=== PATIENT | male | born 1960 | race Caucasian/White ===

== ENCOUNTER 2016-10-09 23:30 | Inpatient (IN) | payer OTHER ==
[~2016-10-09] VITALS: Ht 195.6 cm; Wt 90.9 kg
[2016-10-10 01:40] VITALS: BP 100/69; PULSE 81; RESP 18; Ht 195.6 cm; Wt 90.9 kg
[2016-10-10] MEDS ORDERED: ONDANSETRON 4 MG TAB PO PRN (03:00)
[2016-10-10] MEDS ORDERED: NACL 0.9% 3 ML SYG IV SCH (03:00)
[2016-10-10] MEDS ORDERED: ACETAMINOPHEN 325 MG TAB PO PRN (03:00)
[2016-10-10] MEDS ORDERED: NA PHOSPHATE/BIPHOS 133 ML ENEMA PR PRN (04:00)
[2016-10-10] MEDS ORDERED: BISACODYL 10 MG SUPP PR PRN (04:00)
[2016-10-10] MEDS ORDERED: ALBUTEROL 0.083% (NEB) 2.5 MG/3 ML AMP HHN PRN (04:00)
[2016-10-10] MEDS ORDERED: MAGNESIUM HYDROXIDE 30ML CUP PO PRN (04:00)
[2016-10-10] MEDS ORDERED: ALBUTEROL/IPRATROPIUM (NEB) 3 ML AMP HHN PRN (04:00)
[2016-10-10 05:05] LABS: ADD SCAN DIFF NO
[2016-10-10 05:24] LABS: BASOPHIL # 0.1 10^3/ul (0.0-0.1); BASOPHILS % 1.1 % (0.0-2.0); EOSINOPHILS # 0.2 10^3/ul (0.0-0.5); EOSINOPHILS % 1.7 % (0.0-7.0); HEMATOCRIT 42.6 % (42.0-52.0); HEMOGLOBIN 13.6 g/dl (14.0-18.0); INR 1.02; LYMPHOCYTES # 2.8 10^3/ul (0.8-2.9); LYMPHOCYTES % 29.7 % (15.0-51.0); MEAN CORPUSCULAR HEMOGLOBIN 30.8 pg (29.0-33.0); MEAN CORPUSCULAR HGB CONC 31.9 g/dl (32.0-37.0); MEAN CORPUSCULAR VOLUME 96.4 fl (82.0-101.0); MEAN PLATELET VOLUME 11.4 fl (7.4-10.4); MONOCYTES % 10.4 % (0.0-11.0); NEUTROPHIL # 5.2 10^3/ul (1.6-7.5); NEUTROPHILS % 56.6 % (39.0-77.0); PARTIAL THROMBOPLASTIN TIME 29.4 Sec (25.0-35.0); PLATELET COUNT 173 10^3/UL (140-415); PROTIME 13.4 Sec (12.2-14.2); RED BLOOD COUNT 4.42 10^6/ul (4.70-6.10); RED CELL DISTRIBUTION WIDTH 13.1 % (11.5-14.5); WHITE BLOOD COUNT 9.3 10^3/ul (4.8-10.8)
[2016-10-10 05:26] LABS: ALBUMIN 4.1 g/dl (3.3-4.9)
[2016-10-10 05:27] LABS: POTASSIUM 5.1 mmol/L (3.5-5.1)
[2016-10-10 05:29] LABS: CREATININE 4.66 mg/dl (0.61-1.24)
[2016-10-10 05:30] LABS: ALBUMIN/GLOBULIN RATIO 0.97; CALCIUM 10.5 mg/dl (8.4-10.2); MAGNESIUM 2.1 mg/dl (1.7-2.5); PHOSPHORUS 4.3 mg/dl (2.5-4.9); TOTAL PROTEIN 8.3 g/dl (6.1-8.1)
--- NOTE | 2016-10-10 05:53 | HP ---
Date/Time of Note Date/Time of Note DATE: 10/10/16 TIME: 05:24 Assessment/Plan VTE Prophylaxis VTE Prophylaxis Intervention: anti-embolic stocking Lines/Catheters Urinary Cath still in place: No Assessment/Plan Assessment/Plan 1) Hydronephrosis by report from ER Physician at [facility], but no specific documentation available, so I do not know how much, which side or if it is both sides. - Faxed records from [facility] earlier today were reviewed. I found nothing useful in them like a narrative, labs, rads or a medication list - Send patient's CD to Radiology where the films can be read again so we won't have to repeat the study. - New labs are drawn today to help get to the cause of his worsening kidney function tests. - Above was explained to patient and this helped him to decide to let the inside sales account manager draw his blood. - All home medications are resumed, except for the prn Hydrocodone 10/325, 1 pill at 1700, for breakthrough pain as he is already on Oxycodone 10 mg Q 8 hours. HPI/ROS Admit Date/Time Admit Date/Time Oct 10, 2016 at 01:18 Hx of Present Illness Patient presents as a transfer from [facility] due to the fact he is stable and he is capitated with us through [employer]. I received doctor to doctor communication with Dr. Carrizales, but she took over for the original doctor on the case AND their computer system is down so she has no acces to lab or x- ray results and is relying on her memory on what the first doctor told her. She states this patient was found to have Hydronephrosis which she assumes is obstructive as there were stones found bilaterally.She also mentions an Acute Kidney Injury, remembering that his BUN/Creatinine were 83/4.6 on 10/03 and " worse today". She does tell me that this patient is very frustrated because the entire transfer process has taken too long. She also mentions that he has CIrrhosis, COPD, HTN, Hepatitis C, Anemia and Chronic Respiratory Failure requiring a Trache but not a ventilator. When I get a chance to see patient, he is sleeping soundly. I did wake him. He was a bit grumpy but went back to sleep. Then, the inside sales account manager arrived, and patient originally refused the draw stating he already had blood tests done. I explained to him that we have no specific information on his case because the computers went down at [facility]. He got up and sat at the side of the bed and complained about the long day he has already had and that he is tired "but go ahead and do what you have to do". He explained to the inside sales account manager that he is a "hard stick". Patient was so irritated and impatient that I did not stay any longer so that he could get his blood drawn Prior to me going into the room, I spoke with his nurse and they did receive some faxed notes on this patient. I looked through them, but I coul not identify any narritve, lab or radiologic reports. A CD was included in his transfer packet, and it can be submitted to Radiology to be read, but that has to be done in the AM. I notified patients RN. ROS No specific ROS obtained as patient was short with me and the inside sales account manager, and I felt it was more important to get some lab results this morning, rather koehler going through an entire ROS which would likely make the patient more frustrated. NOTE: Prior to my arrival on the floor, but after I put basic orders in the EHR , the RN called me with his medications. I continued all of them except for the Hydrocodone for breakthrough pain at 1700. See list below. PMH/Family/Social Past Medical History Medical History: diverticulitis, hypertension, other (COPD, Drug Abuse, Chronic Respiratory Failure) Past Surgical History Past Surgical Hx: other (Tracheostomy) Social History Smoking Status: Current some day smoker Exam/Review of Systems Medications Medications Current Medications Ondansetron HCl (Zofran Tab) 4 mg Q6H PRN PO NAUSEA AND/OR VOMITING; Start 10/10 at 03:00 Acetaminophen (Tylenol Tab) 650 mg Q6H PRN PO PAIN LEVEL 1-3 OR FEVER; Start at 03:00 Famotidine (Pepcid) 20 mg Q12 PO ; Start 10/10/16 at 09:00 Ferrous Sulfate (Ferrous Sulfate (Ec)) 325 mg DAILY PO ; Start 10/10/16 at 09:00 Ascorbic Acid (Vitamin C) 500 mg DAILY PO ; Start 10/10/16 at 09:00 Loratadine (Claritin) 10 mg DAILY PO ; Start 10/10/16 at 09:00 Oxycodone HCl (Oxycontin) 10 mg Q8 PO ; Start 10/10/16 at 06:00 Glycopyrrolate (Robinul) 1 mg TID PO ; Start 10/10/16 at 09:00 Atenolol (Tenormin) 25 mg HS PO ; Start 10/10/16 at 21:00 Magnesium Hydroxide (Milk Of Mag) 30 ml HS PRN PO CONSTIPATION; Start 10/10/16 at 04:00 Bisacodyl (Dulcolax Supp) 10 mg DAILY PRN [place] CONSTIPATION; Start 10/10/16 at 04: 00 Sodium Biphosphate/ Sodium Phosphate (Fleet Enema) 133 ml DAILY PRN [place] CONSTIPATION; Start 10/10/16 at 04:00 Zolpidem Tartrate (Ambien) 5 mg HS PO ; Start 10/10/16 at 21:00 Lisinopril (Zestril) 5 mg DAILY PO ; Start 10/10/16 at 09:00 JAZZ PAYNE DO Oct 10, 2016 05:36
[2016-10-10] MEDS: oxyCODONE (CR) 10 MG TAB [oxyCONTIN] PO SCH ×3 (06:24→21:37)
[2016-10-10 07:30] VITALS: BP 110/72; RESP 18
[2016-10-10] MEDS: ALBUTEROL/IPRATROPIUM (NEB) 3 ML AMP HHN SCH ×4 (08:15→20:07)
[2016-10-10] MEDS: CALCIUM ACETATE 667 MG CAP PO SCH ×2 (08:44→12:21)
[2016-10-10] MEDS: GLYCOPYRROLATE 1 MG TAB PO SCH ×3 (08:45→20:34)
[2016-10-10] MEDS: FAMOTIDINE 20 MG TAB PO SCH ×2 (08:45→20:34)
[2016-10-10] MEDS: FERROUS SULFATE (EC) 325 MG TAB PO SCH (08:45)
[2016-10-10] MEDS: LORATADINE 10 MG TAB PO SCH (08:45)
[2016-10-10] MEDS ORDERED: ASCORBIC ACID 500 MG TAB PO SCH (09:00)
[2016-10-10] MEDS ORDERED: LISINOPRIL 5 MG TAB PO SCH (09:00)
[2016-10-10 13:12] LABS: ADD UMIC YES; URINE BILIRUBIN (Dip) NEGATIVE (NEGATIVE); URINE BLOOD (Dip) 2+ (NEGATIVE); URINE COLOR YELLOW (YELLOW); URINE GLUCOSE (Dip) NEGATIVE (NEGATIVE); URINE KETONES (Dip) NEGATIVE (NEGATIVE); URINE LEUKOCYTE ESTERASE (Dip) 3+ (NEGATIVE); URINE NITRITE (Dip) NEGATIVE (NEGATIVE); URINE TOTAL PROTEIN (Dip) TRACE (NEGATIVE); URINE UROBILINOGEN (Dip) 0.2 E.U./dL (0.1-1.0)
[2016-10-10 13:35] LABS: BACTERIA,URINE MANY
--- NOTE | 2016-10-10 16:21 | RADRPT ---
PROCEDURE: XR Abdomen. CLINICAL INDICATION: History of bilateral ureteral calculi. TECHNIQUE: AP supine abdomen x-ray. COMPARISON: None. FINDINGS: The bowel gas pattern is normal. There is no evidence of obstruction. There is a 1.0 x 1.2 cm calcification overlying the lower right kidney, a 1.8 x 1.3 cm calcification overlying the right ureter at the upper L4 level, and a 1.4 x 1.0 cm calcification overlying the le ft ureter at the mid L3 level. There are degenerative changes of the spine. IMPRESSION: 1. Calcifications bilaterally which may be in the urinary tracts. 2. Degenerative changes of the spine. 3. Otherwise unremarkable study. RPTAT: QQ .Oli Ford MD, MD Date Time Electronically viewed and signed by .Oli Ford MD, on 10/10/2016 16:21 .R/
--- NOTE | 2016-10-10 17:52 | CONS ---
DATE OF ADMISSION: 10/10/2016 DATE OF CONSULTATION: 10/10/2016 TYPE OF CONSULTATION: Nephrology REFERRING PHYSICIAN: Luciana Barroso MD REASON FOR ADMISSION: Acute kidney injury with a BUN of 86, creatinine 4.6, glucose 107, calcium 10 .5. HISTORY OF PRESENT ILLNESS: This is a 56-year-old male with a past medical history of COPD, hyperte nsion, hepatitis C, anemia, chronic respiratory failure requiring a tracheostomy but not on ventilat or, history of liver cirrhosis. The patient got transferred to [facility] because o f having hydronephrosis. The patient's insurance was capitated to [facility]. He has a BUN of 83 and the creatinine was 4.6, which have been getting worse. The patient is admitted to [facility] for further urological evaluation and the further plan as per urolo gy. At the time of my evaluation, the patient was very frustrated about getting a transfer, and the luis ent was also complaining of back pain associated with some hematuria. Otherwise no fever, chills, h eadache, dizziness, blurry vision, constipation, diarrhea, dysuria, increased urinary frequency. PAST MEDICAL HISTORY: Diverticulitis, hypertension, COPD, chronic respiratory failure, status post tracheostomy but not on ventilator, anemia of chronic disease, hepatitis C, liver cirrhosis. PAST SURGICAL HISTORY: History of tracheostomy. SOCIAL HISTORY: The patient is a current smoker. No alcohol or recreational drug use as per the pa tient. FAMILY HISTORY: Not available. PHYSICAL EXAMINATION: VITAL SIGNS: Temperature 97.7, heart rate 80, respirations 20, blood pressure 110/72, saturation is 94% to 95% on room air. GENERAL: Awake, alert, in no distress. HEENT: Normal. Oropharynx clear. NECK: Supple, no JVD, no lymphadenopathy. Tracheostomy site is clear. No erythema, no discharge. LUNGS: Clear to auscultation. No crackles, no wheezes. HEART: S1, S2, with regular rhythm, no murmur. ABDOMEN: Soft, nontender, nondistended. Bowel sounds are present. EXTREMITIES: No clubbing, cyanosis, or edema. NEUROLOGICAL: Nonfocal, intact. LABORATORY DATA/DIAGNOSTIC IMAGIN. Sodium 142, potassium 5.1, chloride 104, bicarbonate 24, BUN 86, creatinine 4.6, glucose 107, ca lcium 10.5. LFTs are normal. Albumin 4.1. PT 13.4, PTT 29.4, INR 1.0. WBC 9.3, hemoglobin 13.6, platelet count 173. Urinalysis shows cloudy, 3+ leukocyte esterase, 2+ hemoglobin. 2. X-ray abdomen which shows calcifications bilaterally, which may be in the urinary tract, degener ative changes of the spine, otherwise unremarkable study. 3. The patient had studies done at [facility] as follows: His BUN was 83, creatini ne was 4.3, bicarbonate was 20. The patient had a renal ultrasound done at [facility] which shows bilateral hydronephrosis with punctate echogenic foci, possibly renal stones. CT exa m without contrast can evaluate. 4. The patient subsequently had a CT abdomen and pelvis without contrast which shows bilateral mode rate to severe hydroureteronephrosis secondary to proximal ureteral stones, bilateral renal stones. IMPRESSION: This is a 56-year-old male with: 1. Acute kidney injury on possible chronic kidney disease secondary to obstructive uropathy seconda ry to bilateral proximal ureteral stones causing moderate to severe hydronephrosis. 2. Bilateral moderate to severe hydroureteronephrosis secondary to proximal ureteral stones. 3. Bilateral renal stones. 4. Hyperkalemia, status post Kayexalate at [facility]. 5. Metabolic acidosis secondary to obstructive uropathy. 6. History of hypertension, diverticulitis, chronic obstructive pulmonary disease, history of chron ic respiratory failure, status post tracheostomy, not on ventilator. PLAN: 1. Thank you, Dr. Luciana Barroso, for this consultation. The patient likely has obstructive uropathy s econdary to bilateral proximal ureteral stones. Currently, his potassium is normal, but the BUN and creatinine are high. His BUN was 83, creatinine was 4.3 at [facility] which has been slowly getting worse. He has hypercalcemia with a calcium of 10.5. The patient will likely need urology consultations. I will stop his Vitamin C 500 mg p.o. daily. 2. I will start the patient on NS to run at 100 mL/hour for hydration in the setting of acute nephr olithiasis and obstructive uropathy. 3. The patient is currently seen in the medical/surgical floor and the patient will be followed up along with the primary care team. 4. The patient will need a urology consultation. I communicated with the hospitalist team and we w ill follow the patient along with the primary care service. Total time spent in this patient's evaluation, making assessment and plan , communicating with the patient at bedside, updating him about the plan and also to communicate with the nursing staff t ook more than 90 minutes. Dictated By: ISIDORO FARMER MD, KP/BONNIE Conf#: [id number] DID#: [id number]
[2016-10-10 20:11] VITALS: BP 94/62; RESP 16
--- NOTE | 2016-10-10 20:33 | RADRPT ---
Vent Rate: 66 bpm RR Interval: 0 msec [place] Interval: 186 msec QRS Duration: 88 msec QT Interval: 432 msec QTC Interval: 452 msec P-R-T [place]: 70 - 51 - 77 degrees Normal sinus rhythm Normal ECG Electronically Signed By: Fred Blakely [id number]
[2016-10-10] MEDS: ZOLPIDEM 5 MG TAB PO SCH (20:34)
[2016-10-10] MEDS: ATENOLOL 25 MG TAB PO SCH (20:38)
[2016-10-11] VITALS (17 sets, daily range): BP systolic 74–139; BP diastolic 52–118; PULSE 42–95; RESP 18–37
--- NOTE | 2016-10-11 03:40 | CONS ---
DATE OF ADMISSION: 10/10/2016 DATE OF CONSULTATION: 10/10/2016 REQUESTING PHYSICIAN: Dr. Luciana Barroso. HISTORY OF PRESENT ILLNESS: This is a 56-year-old male who initially presented to [facility] because of having abdominal pain and he had a CT scan of the abdomen and pelvis which show ed bilateral hydronephrosis and renal failure with a creatinine of 4.6 and a BUN of 83. He was then transferred to [facility] because he is to [facility]. Also on CT scan, it showed bilateral hydronephrosis with bilateral renal stones and there was a large ston e in the right upper ureter and another stone in the left upper ureter, both of them causing obstruc tion and there is thinning of the renal parenchyma. Therefore, a urological consultation was reques mejia. PAST MEDICAL HISTORY: Patient does have multiple medical problems that include a history of diverti culitis, hypertension, COPD, chronic respiratory failure. He has had a tracheostomy, but he is no l onger on a ventilator. Has anemia of chronic kidney disease, hepatitis C and liver cirrhosis. SOCIAL HISTORY: The patient is still a smoker. He has no history of alcohol abuse or drug abuse. MEDICATIONS: Presently include: 1. Atenolol. 2. Ambien. 3. Pepcid. 4. Ferrous sulfate. 5. Claritin. 6. Robinul. 7. Albuterol. 8. Ipratropium. 9. OxyContin. 10. Milk of Magnesia p.r.n. 11. Dulcolax p.r.n. 12. Fleet Enema p.r.n. 13. Zofran p.r.n. 14. Tylenol. ALLERGIES: THE PATIENT HAS NO KNOWN DRUG ALLERGIES. PHYSICAL EXAMINATION: GENERAL: Reveals a 56-year-old male. He weighs about 91 kg. He is 77 inches tall. VITAL SIGNS: His temperature is 97.8, pulse is 80, respirations 20, blood pressure 110/72. NECK: He does have a tracheostomy in place. ABDOMEN: He does have bilateral tenderness. GENITALIA: External genitalia are normal. EXTREMITIES: Reveal no edema. LABORATORY DATA: His CBC shows a white count of 9.3, hemoglobin 13.6, hematocrit 42.6. The BUN is 86, creatinine 4.66, sodium 142, potassium 5.1, chloride 104, CO2 24. The PT is 13.4, INR 1.02, PTT 29.4. Urinalysis 3+ leukocyte esterase, many bacteria and more than 200 WBCs per high power field, 2+ occult blood. I did order earlier on him a KUB to see if the stones are visible on the x-ray and that KUB showed t hat there is a 1.0 x 1.2 cm stone in the lower right kidney, a 1.8 x 1.3 cm calcification overlying the right ureter at the L4 level and a 1.4 x 1.0 calcification overlying the left ureter at the L3 l evel. There are degenerative changes of the spine. IMPRESSION: Bilateral upper ureteral stones causing obstruction and hydronephrosis, resulting in re nal failure and patient most likely has had this obstruction for a while as he has thinning of his r enal parenchyma. RECOMMENDATION: 1. Do a cystoscopy, insert bilateral JJ stents. 2. Maybe also try to push the stone back in the kidney if possible. If not, put the JJ stent to al low his kidneys to drain and his renal function to recover and then at a later date, we will deal wi th the stones. Dictated By: SKIP KIM/BONNIE Conf#: [id number] DID#: [id number]
[2016-10-11] MEDS: oxyCODONE (CR) 10 MG TAB [oxyCONTIN] PO SCH ×3 (05:17→22:11)
[2016-10-11 06:17] LABS: ADD SCAN DIFF NO
[2016-10-11 06:29] LABS: BASOPHIL # 0.1 10^3/ul (0.0-0.1); EOSINOPHILS # 0.2 10^3/ul (0.0-0.5); EOSINOPHILS % 1.9 % (0.0-7.0); HEMATOCRIT 41.5 % (42.0-52.0); HEMOGLOBIN 13.5 g/dl (14.0-18.0); LYMPHOCYTES # 2.3 10^3/ul (0.8-2.9); LYMPHOCYTES % 25.7 % (15.0-51.0); MEAN CORPUSCULAR HEMOGLOBIN 31.3 pg (29.0-33.0); MEAN CORPUSCULAR HGB CONC 32.5 g/dl (32.0-37.0); MEAN CORPUSCULAR VOLUME 96.3 fl (82.0-101.0); MONOCYTES % 10.9 % (0.0-11.0); NEUTROPHIL # 5.4 10^3/ul (1.6-7.5); NEUTROPHILS % 60.1 % (39.0-77.0); PLATELET COUNT 171 10^3/UL (140-415); RED BLOOD COUNT 4.31 10^6/ul (4.70-6.10); RED CELL DISTRIBUTION WIDTH 12.8 % (11.5-14.5)
[2016-10-11 06:39] LABS: ALBUMIN 3.9 g/dl (3.3-4.9); MAGNESIUM 2.1 mg/dl (1.7-2.5); PHOSPHORUS 5.4 mg/dl (2.5-4.9); POTASSIUM 4.6 mmol/L (3.5-5.1)
[2016-10-11 06:41] LABS: CREATININE 4.45 mg/dl (0.61-1.24)
[2016-10-11 06:42] LABS: ALBUMIN/GLOBULIN RATIO 0.92; CALCIUM 10.4 mg/dl (8.4-10.2); TOTAL PROTEIN 8.1 g/dl (6.1-8.1)
[2016-10-11 07:10] LABS: THYROID STIMULATING HORMONE 1.83 MIU/L (0.465-4.680)
[2016-10-11] MEDS: ALBUTEROL/IPRATROPIUM (NEB) 3 ML AMP HHN SCH ×4 (07:37→20:00)
[2016-10-11] MEDS: FAMOTIDINE 20 MG TAB PO SCH ×2 (09:00→22:11)
[2016-10-11] MEDS: GLYCOPYRROLATE 1 MG TAB PO SCH ×3 (09:00→22:13)
[2016-10-11] MEDS: LORATADINE 10 MG TAB PO SCH (09:00)
[2016-10-11] MEDS: FERROUS SULFATE (EC) 325 MG TAB PO SCH (09:00)
--- NOTE | 2016-10-11 09:04 | PN ---
DATE: 10/11/2016 SUBJECTIVE: Bilateral hydronephrosis, bilateral ureteral stones with obstruction and renal failure. The patient is feeling comfortable at the present. However, his renal function still shows very h igh creatinine. OBJECTIVE FINDINGS: VITAL SIGNS: His temperature is 97.6, pulse is 83, respirations 18, blood pressure 101/69. NECK: He does have the tracheostomy in place. ABDOMEN: Soft. Scar from old G-tube in place. LABORATORY DATA: His CBC shows a white count of 9.0, hemoglobin 13.5, hematocrit 41.5. BUN is 86, creatinine 4.45, sodium 142, potassium 4.6, chloride 105, CO2 of 23. The patient is supposed to jarquin ve a chest x-ray and it has not been done yet. IMPRESSION: Bilateral ureteral stones causing obstruction and hydronephrosis and renal failure. PLAN: To do cystoscopy and insertion of bilateral ureteral JJ stents and stone manipulation. Once that is done, then that hopefully will help improve his renal function. Then at a later date, we wi ll treat the stones, one stone at that time and change the stents. I explained to the patient the p rocess, the multiple procedures, the importance to follow up, that he will need to have the stents r emoved and maybe replaced, that we cannot leave them there too long because they could get calcified and they become a problem, and that it is very important that he does follow up. I asked him where he lives, he said he lives in an assisted living in place so should be able to follow up. I explain ed him the procedures, and he is agreeable to proceed. Dictated By: SKIP KIM/BONNIE Conf#: [id number] DID#: [id number]
[2016-10-11] MEDS: DEXTROSE 5%-0.45% NACL 1,000 ML IV SCH (09:13)
--- NOTE | 2016-10-11 09:43 | RADRPT ---
PROCEDURE: Chest Radiograph. CLINICAL INDICATION: Preop TECHNIQUE: Single frontal chest radiograph. COMPARISON: No comparison FINDINGS: The distal portions of an endotracheal tube or tracheostomy tube are identified. The heart is magni fied. There is fullness of the right hilum. There is moderate elevation of the left hemidiaphragm with dense left basilar scarring or atelectasis. There is mild right basilar atelectasis. The bon es are intact. IMPRESSION: 1. Fullness of the right hilum which may be related to prominent pulmonary vasculature or marine enl argement. Consider further evaluation with CT chest if clinically indicated. 2. Moderate elevation of the left hemidiaphragm with dense left basilar atelectasis or scarring. 3. Mild right basilar atelectasis. RPTAT: AA .Narciso Tilley MD, Date Time Electronically viewed and signed by .Narciso Tilley MD, MD on 10/11/2016 09:42 .B/
--- NOTE | 2016-10-11 12:11 | CONS ---
Date/Time of Note Date/Time of Note DATE: 10/11/16 TIME: 12:08 Assessment/Plan Assessment/Plan Additional Assessment/Plan 1. Acute kidney injury on possible chronic kidney disease secondary to obstructive uropathy secondary to bilateral proximal ureteral stones causing moderate to severe hydronephrosis. 2. Bilateral moderate to severe hydroureteronephrosis secondary to proximal ureteral stones. 3. Bilateral renal stones. 4. Hyperkalemia, status post Kayexalate at [facility]. 5. Metabolic acidosis secondary to obstructive uropathy. 6. History of hypertension, diverticulitis, chronic obstructive pulmonary disease, history of chronic respiratory failure, status post tracheostomy, not on ventilator. PLAN: K normal, HCO3 normal BUN/Cr still high, pt said he has been voiding ok s/p UROLOGY CONSULT- plan for cystoscopy today will continue to follow up Consultation Date/Type/Reason Admit Date/Time Oct 10, 2016 at 01:18 Initial Consult Date Oct 10, 2016 Type of Consultation: NEPHROLOGY Reason for Consultation Acute Kidney Injury, obstructive uropathy, Ureteral stone causign hydronephrosis Referring Provider: JAZZ PAYNE DO 24 HR Interval Summary Free Text/Dictation pt is seen by Urologylor for cystoscopy, BUN/Cr still high Exam/Review of Systems Vital Signs Vitals Vital Signs Date Time Temp Pulse Resp B/P Pulse Ox O2 Delivery O2 Flow Rate FiO2 10/11/16 11:39 69 16 96 21 10/11/16 07:40 97.6 101/69 10/10/16 01:40 Trach Collar Intake and Output 10/10/16 10/10/16 10/11/16 15:00 23:00 07:00 Intake Total 720 ml 400 ml Balance 720 ml 400 ml Exam GENERAL: Awake, alert, in no distress. HEENT: Normal. Oropharynx clear. NECK: Supple, no JVD, no lymphadenopathy. Tracheostomy site is clear. No erythema, no discharge. LUNGS: Clear to auscultation. No crackles, no wheezes. HEART: S1, S2, with regular rhythm, no murmur. ABDOMEN: Soft, nontender, nondistended. Bowel sounds are present. EXTREMITIES: No clubbing, cyanosis, or edema. NEUROLOGICAL: Nonfocal, intact. Results Result Diagram: 10/11/16 0535 10/11/16 0535 Results 24 hrs Laboratory Tests Test 10/11/16 05:35 Alanine Aminotransferase (ALT/SGPT) 21 Albumin 3.9 Albumin/Globulin Ratio 0.92 Alkaline Phosphatase 74 Ammonia 31 H Anion Gap 19 H Aspartate Amino Transf (AST/SGOT) 14 L Basophils # 0.1 Basophils % 1.0 Blood Urea Nitrogen 86 H Calcium Level 10.4 H Carbon Dioxide Level 23 Chloride Level 105 Cholesterol Level 168 Cholesterol/HDL Ratio 8.0 Creatinine 4.45 H Direct Bilirubin 0.00 Eosinophils # 0.2 Eosinophils % 1.9 Free Thyroxine 1.70 Globulin 4.20 H Glucose Level 85 HDL Cholesterol 21 L Hematocrit 41.5 L Hemoglobin 13.5 L Hemoglobin A1c 13.3 H Indirect Bilirubin 0.0 LDL Cholesterol, Calculated 118 Lymphocytes # 2.3 Lymphocytes % 25.7 Magnesium Level 2.1 Mean Corpuscular Hemoglobin 31.3 Mean Corpuscular Hemoglobin Concent 32.5 Mean Corpuscular Volume 96.3 Mean Platelet Volume 11.0 H Monocytes # 1.0 H Monocytes % 10.9 Neutrophils # 5.4 Neutrophils % 60.1 Nucleated Red Blood Cells # 0.0 Nucleated Red Blood Cells % 0.0 Phosphorus Level 5.4 H Platelet Count 171 Potassium Level 4.6 Red Blood Count 4.31 L Red Cell Distribution Width 12.8 Sodium Level 142 Thyroid Stimulating Hormone (TSH) 1.830 Total Bilirubin 0.0 L Total Protein 8.1 Triglycerides Level 143 White Blood Count 9.0 Medications Medications Current Medications Ondansetron HCl (Zofran Tab) 4 mg Q6H PRN PO NAUSEA AND/OR VOMITING; Start 10/10 at 03:00 Acetaminophen (Tylenol Tab) 650 mg Q6H PRN PO PAIN LEVEL 1-3 OR FEVER; Start at 03:00 Famotidine (Pepcid) 20 mg Q12 PO Last administered on 10/10/16 20:34; Admin Dose 20 MG; Start 10/10/16 at 09:00 Ferrous Sulfate (Ferrous Sulfate (Ec)) 325 mg DAILY PO Last administered on 10/10 08:45; Admin Dose 325 MG; Start 10/10/16 at 09:00 Loratadine (Claritin) 10 mg DAILY PO Last administered on 10/10/16 08:45; Admin Dose 10 MG; Start 10/10/16 at 09:00 Oxycodone HCl (Oxycontin) 10 mg Q8 PO Last administered on 10/10/16 21:37; Admin Dose 10 MG; Start 10/10/16 at 06:00 Glycopyrrolate (Robinul) 1 mg TID PO Last administered on 10/10/16 20:34; Admin Dose 1 MG; Start 10/10/16 at 09:00 Atenolol (Tenormin) 25 mg HS PO ; Start 10/10/16 at 21:00 Magnesium Hydroxide (Milk Of Mag) 30 ml HS PRN PO CONSTIPATION; Start 10/10/16 at 04:00 Bisacodyl (Dulcolax Supp) 10 mg DAILY PRN [place] CONSTIPATION; Start 10/10/16 at 04: 00 Sodium Biphosphate/ Sodium Phosphate (Fleet Enema) 133 ml DAILY PRN [place] CONSTIPATION; Start 10/10/16 at 04:00 Zolpidem Tartrate 5 mg 5 mg HS PO Last administered on 10/10/16 20:34; Admin Dose 5 MG; Start 10/10/16 at 21:00 Dextrose/Sodium Chloride (D5-1/2ns) 1,000 ml @ 50 mls/hr Q20H IV Last administered on 10/11/16 09:13; Admin Dose 50 MLS/HR; Start 10/11/16 at 08:30 ISIDORO FARMER MD Oct 11, 2016 12:10
--- NOTE | 2016-10-11 15:12 | PN ---
Date/Time of Note Date/Time of Note DATE: 10/11/16 TIME: 15:01 Assessment/Plan VTE Prophylaxis VTE Prophylaxis Intervention: SCD's Lines/Catheters IV Catheter Type (from Nrs): Saline Lock Urinary Cath still in place: No Assessment/Plan Assessment/Plan 1. Bilateral ureteral stones causing obstruction and hydronephrosis, Dr. Millan for JJ stents 2. Obstructive uropathy with acute renal failure, urology to release the ureteral obstruction 3.UTI, rocephin 4. Hypertension, controlled 5. Chronic obstructive pulmonary disease, status post tracheostomy, not on ventilator. 6. HbA1c 13.3 ? lab error, repeat Subjective 24 Hr Interval Summary Free Text/Dictation no fever or chills Exam/Review of Systems Vital Signs Vitals Vital Signs Date Time Temp Pulse Resp B/P Pulse Ox O2 Delivery O2 Flow Rate FiO2 10/11/16 11:39 69 16 96 21 10/11/16 07:40 97.6 101/69 10/10/16 01:40 Trach Collar Intake and Output 10/10/16 10/10/16 10/11/16 15:00 23:00 07:00 Intake Total 720 ml 400 ml Balance 720 ml 400 ml Exam Constitutional: alert, oriented, well developed Psych: nl mood/affect, no complaints Head: atraumatic, normocephalic Eyes: EOMI, PERRL, nl conjunctiva, nl lids ENMT: nl external ears & nose, nl lips & teeth, nl nasal mucosa & septum Neck: non-tender, other (tracheostomy), supple Respiratory: clear to auscultation, normal air movement, No congested cough, No crackles/rales, No diminished breath sounds, No intercostal retraction, No labored breathing, No other, No respirations, No tactile fremitus, No wheezing Cardiovascular: nl pulses, regular rate and rhythm, No S3, No S4, No bruits, No diastolic murmur, No edema, No gallop, No irregular rhythm, No jugular venous distention (JVD), No murmurs/extra sounds, No other, No rub, No systolic murmur Gastrointestinal: nl liver, spleen, non-tender, soft, No ascites, No bowel sounds, No distended, No firm, No hepatomegaly, No mass , No other, No rebound or guarding, No splenomegaly, No surgical scars, No tender Musculoskeletal: nl extremities to inspection Extremities: normal pulses, No calf tenderness, No clubbing, No cyanosis, No edema, No other, No palpable cord, No pitting pedal edema, No tenderness 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, nl mental status, nl speech, nl strength Results Result Diagram: 10/11/16 0535 10/11/16 0535 Results 24 hrs Laboratory Tests Test 10/11/16 05:35 Alanine Aminotransferase (ALT/SGPT) 21 Albumin 3.9 Albumin/Globulin Ratio 0.92 Alkaline Phosphatase 74 Ammonia 31 H Anion Gap 19 H Aspartate Amino Transf (AST/SGOT) 14 L Basophils # 0.1 Basophils % 1.0 Blood Urea Nitrogen 86 H Calcium Level 10.4 H Carbon Dioxide Level 23 Chloride Level 105 Cholesterol Level 168 Cholesterol/HDL Ratio 8.0 Creatinine 4.45 H Direct Bilirubin 0.00 Eosinophils # 0.2 Eosinophils % 1.9 Free Thyroxine 1.70 Globulin 4.20 H Glucose Level 85 HDL Cholesterol 21 L Hematocrit 41.5 L Hemoglobin 13.5 L Hemoglobin A1c 13.3 H Indirect Bilirubin 0.0 LDL Cholesterol, Calculated 118 Lymphocytes # 2.3 Lymphocytes % 25.7 Magnesium Level 2.1 Mean Corpuscular Hemoglobin 31.3 Mean Corpuscular Hemoglobin Concent 32.5 Mean Corpuscular Volume 96.3 Mean Platelet Volume 11.0 H Monocytes # 1.0 H Monocytes % 10.9 Neutrophils # 5.4 Neutrophils % 60.1 Nucleated Red Blood Cells # 0.0 Nucleated Red Blood Cells % 0.0 Phosphorus Level 5.4 H Platelet Count 171 Potassium Level 4.6 Red Blood Count 4.31 L Red Cell Distribution Width 12.8 Sodium Level 142 Thyroid Stimulating Hormone (TSH) 1.830 Total Bilirubin 0.0 L Total Protein 8.1 Triglycerides Level 143 White Blood Count 9.0 Medications Medications Current Medications Ondansetron HCl (Zofran Tab) 4 mg Q6H PRN PO NAUSEA AND/OR VOMITING; Start 10/10 at 03:00 Acetaminophen (Tylenol Tab) 650 mg Q6H PRN PO PAIN LEVEL 1-3 OR FEVER; Start at 03:00 Famotidine (Pepcid) 20 mg Q12 PO Last administered on 10/10/16t 20:34; Admin Dose 20 MG; Start 10/10/16 at 09:00 Ferrous Sulfate (Ferrous Sulfate (Ec)) 325 mg DAILY PO Last administered on 10/10 08:45; Admin Dose 325 MG; Start 10/10/16 at 09:00 Loratadine (Claritin) 10 mg DAILY PO Last administered on 10/10/16 08:45; Admin Dose 10 MG; Start 10/10/16 at 09:00 Oxycodone HCl (Oxycontin) 10 mg Q8 PO Last administered on 10/10/16 21:37; Admin Dose 10 MG; Start 10/10/16 at 06:00 Glycopyrrolate (Robinul) 1 mg TID PO Last administered on 10/10/16 20:34; Admin Dose 1 MG; Start 10/10/16 at 09:00 Atenolol (Tenormin) 25 mg HS PO ; Start 10/10/16 at 21:00 Magnesium Hydroxide (Milk Of Mag) 30 ml HS PRN PO CONSTIPATION; Start 10/10/16 at 04:00 Bisacodyl (Dulcolax Supp) 10 mg DAILY PRN [place] CONSTIPATION; Start 10/10/16 at 04: 00 Sodium Biphosphate/ Sodium Phosphate (Fleet Enema) 133 ml DAILY PRN [place] CONSTIPATION; Start 10/10/16 at 04:00 Zolpidem Tartrate 5 mg 5 mg HS PO Last administered on 10/10/16 20:34; Admin Dose 5 MG; Start 10/10/16 at 21:00 Dextrose/Sodium Chloride (D5-1/2ns) 1,000 ml @ 50 mls/hr Q20H IV Last administered on 10/11/16 09:13; Admin Dose 50 MLS/HR; Start 10/11/16 at 08:30 SANDY MENDOSA MD Oct 11, 2016 15:11
[2016-10-11] MEDS: CEFTRIAXONE 1 GM/50 ML (PMX) 50 ML IVPB SCH (16:04)
--- NOTE | 2016-10-11 17:08 | HPN ---
Date/Time of Note Date/Time of Note DATE: 10/11/16 TIME: 17:08 Interval H&P Admission Note Pt. seen H&P reviewed: No system changes SKIP LOCO MD Oct 11, 2016 17:08
[2016-10-11] MEDS ORDERED: hydrALAzine 20 MG INJ IV PRN (17:30)
[2016-10-11] MEDS ORDERED: LABETALOL HCL 20MG INJ IV PRN (17:30)
[2016-10-11] MEDS ORDERED: ONDANSETRON 4 MG INJ IV PRN (17:30)
[2016-10-11] MEDS ORDERED: HYDROmorphONE (0.2 MG/ML) 10ML SYG IV PRN ×2 (17:30)
[2016-10-11] MEDS ORDERED: EPHEDrine SULFATE 50 MG/5 ML SYG IV PRN (17:30)
[2016-10-11] MEDS ORDERED: DIPHENHYDRAMINE 50 MG INJ IV PRN (17:30)
[2016-10-11] MEDS ORDERED: MEPERIDINE 25 MG INJ IV PRN (17:30)
[2016-10-11] MEDS ORDERED: morphine (1 MG/ML) 10ML SYRINGE IV PRN ×2 (17:30)
[2016-10-11] MEDS ORDERED: PROPOFOL 40 ML ONE (17:35)
[2016-10-11] MEDS ORDERED: MIDAZOLAM 1 MG/ML 2 ML INJ ONE (17:36)
[2016-10-11] MEDS ORDERED: FENTAnyl 50 MCG/ML VIAL ONE (17:36)
[2016-10-11] MEDS ORDERED: PHENYLephrine (100 MCG/ML) 5ML SYG ONE ×4 (17:53→18:47)
[2016-10-11] MEDS ORDERED: LIDOCAINE 2% 20 ML UROJET SYRINGE ONE (17:54)
[2016-10-11] MEDS ORDERED: ONDANSETRON 4 MG INJ ONE (18:15)
[2016-10-11] MEDS ORDERED: METOCLOPRAMIDE 10 MG INJ ONE (18:15)
[2016-10-11] MEDS ORDERED: DEXAMETHASONE 4 MG/ML 1 ML INJ ONE ×2 (18:15→18:16)
[2016-10-11] MEDS ORDERED: KETOROLAC 30 MG INJ ONE (18:15)
[2016-10-11 18:56] LABS: ANA SCREEN POSITIVE (NEGATIVE)
--- NOTE | 2016-10-11 20:21 | RADRPT ---
PROCEDURE: Intraoperative imaging of the abdomen and pelvis with fluoroscopy. CLINICAL INDICATION: Abdominal pain. Intraoperative. TECHNIQUE: 13 images of the abdomen and pelvis were obtained in the operating room with an image i ntensifier. No radiologist was in attendance. COMPARISON: Abdomen radiograph dated 10/10/2016. FINDINGS: Images demonstrate the cystoscope in position and subsequent images demonstrate instrumentation of b oth ureters and placement of bilateral double pigtail ureteral stents in satisfactory position. IMPRESSION: 1. Satisfactory placement of bilateral ureteral stents. RPTAT: QQ .Oli Ford MD, MD Date Time Electronically viewed and signed by .Oli Ford MD, MD on 10/11/2016 20:20 .R/
[2016-10-11 20:22] LABS: ANA TITER 1:40 titer
[2016-10-11] MEDS: ATENOLOL 25 MG TAB PO SCH (21:00)
--- NOTE | 2016-10-11 21:20 | OPR ---
DATE OF OPERATION: 10/11/2016 PREOPERATIVE DIAGNOSIS: Bilateral upper ureteral stones with obstruction and hydronephrosis and ryan al failure. POSTOPERATIVE DIAGNOSIS: Bilateral upper ureteral stones with obstruction and hydronephrosis and re nal failure. FINDINGS: Right upper ureteral stone that was obstructing and purulent material drained out to the kidney, left upper ureteral stone much more obstructing. It took a lot of work to be able to pass a wire by it and again also purulent urine drained from the kidney. PROCEDURE: Cystoscopy and insertion of bilateral ureteral JJ stents. Both sides 6-Colombian x 26 cm l karlos. On the left side, tried to manipulate the stone and lubricate it to see if it will facilitate the passage of the wire and also hoping that we will be able to push it into the kidney, but it woul d not. TECHNIQUE: The patient was brought to the operating room. He was given spinal anesthesia and also sedation by the anesthesiologist. Time out was done. The patient was then positioned in the lithot josh position. The patient was identified by his name, date, the procedure and then given 2 gr ams of Ancef IV at the start of the procedure. The genital area was prepped and draped in the usual sterile manner. Fluoroscopy was done and one could see the stones, but not well delineated on the original films. Then, I did pass the 21-Colombian cystoscope sheath into the bladder through the penis all the way to the bladder. The bladder had cloudy urine that was collected for culture and sensit ivity. Then, the right ureteral orifice was identified, cannulated with a 5-Colombian open-ended urete ral catheter and through that I advanced the 0.35 Glidewire and advanced that wire all the way up to the level of the stone. When it reached the stone, it met some resistance initially, and then with some manipulation, the wire did go up to the kidney and then I advanced open-ended on it all the wa y to the kidney. Once it reached the kidney the wire was removed and I aspirated about 100 mL of ur ine and then purulent material from the kidney on that side at the end and then I did send all that urine for culture. Then, I passed the Glidewire back into the kidney and removed the open-ended and on the Glidewire, I advanced a 6-Colombian x 26 cm long JJ stent and had its proximal end curling into the kidney and the distal end curling into the bladder. Then, I tried to do the same procedure on the left side. However, on the left side as the wire reac hed the stone in the upper ureter, it would not bypass it. It kept on bouncing back and going down back into the ureter. Then I did take the wire out and kept the open-ended ureteral catheter just b elow the stone and injected a mixture of 2% lidocaine with equal amount of saline to try to lubricat e the stone and try to flush it up into the ureter, and it was meeting very stiff resistance. After multiple attempts and taking out the wire pushing it back in, and so on, I was at the end able to d irect the wire on the side of the stone and then I advanced it and luckily it did go up to the kidne y. At that moment, I advanced the open-ended on it and indeed it did go up to the kidney because th e urine started coming out through the ureteral catheter. At that moment, I removed the Glidewire a nd aspirated another mL of urine purulent material and at the end a little bloody urine from that ki dney. All that also was sent for culture and sensitivity. Then, I reintroduced the Glidewire back into the kidney, I removed the open-ended and inserted the 6-Colombian x 26 cm JJ stent, had its proxim al end curling into the kidney, the distal end curling into the bladder. At that moment, I emptied the bladder, removed the scope and transferred the patient to the recovery room in stable and satisf actory condition. Dictated By: SKIP KIM/BONNIE Conf#: [id number] DID#: [id number]
[2016-10-11] MEDS: ZOLPIDEM 5 MG TAB PO SCH (22:11)
[2016-10-12 04:00] VITALS: BP 95/54; PULSE 82; RESP 20
[2016-10-12] MEDS: DEXTROSE 5%-0.45% NACL 1,000 ML IV SCH ×2 (04:30→10:53)
[2016-10-12] MEDS: oxyCODONE (CR) 10 MG TAB [oxyCONTIN] PO SCH ×3 (05:45→21:03)
[2016-10-12 06:10] LABS: ADD SCAN DIFF NO
[2016-10-12 06:16] LABS: ABNORMAL IP MESSAGE 1; BASOPHILS % 0.1 % (0.0-2.0); HEMOGLOBIN 12.6 g/dl (14.0-18.0); LYMPHOCYTES # 0.5 10^3/ul (0.8-2.9); LYMPHOCYTES % 6.5 % (15.0-51.0); MEAN CORPUSCULAR HEMOGLOBIN 31.3 pg (29.0-33.0); MEAN CORPUSCULAR HGB CONC 32.3 g/dl (32.0-37.0); MEAN CORPUSCULAR VOLUME 96.8 fl (82.0-101.0); MEAN PLATELET VOLUME 11.3 fl (7.4-10.4); MONOCYTE # 0.2 10^3/ul (0.3-0.9); MONOCYTES % 2.8 % (0.0-11.0); NEUTROPHIL # 7.4 10^3/ul (1.6-7.5); PLATELET COUNT 148 10^3/UL (140-415); RED BLOOD COUNT 4.03 10^6/ul (4.70-6.10); RED CELL DISTRIBUTION WIDTH 12.8 % (11.5-14.5); WHITE BLOOD COUNT 8.2 10^3/ul (4.8-10.8)
[2016-10-12 06:32] LABS: CREATININE 4.41 mg/dl (0.61-1.24)
[2016-10-12 06:33] LABS: CALCIUM 9.2 mg/dl (8.4-10.2)
[2016-10-12 08:12] VITALS: BP 111/66; RESP 14
[2016-10-12] MEDS: ALBUTEROL/IPRATROPIUM (NEB) 3 ML AMP HHN SCH ×4 (08:18→20:15)
[2016-10-12 08:27] VITALS: BP 93/53; RESP 16
[2016-10-12] MEDS: FERROUS SULFATE (EC) 325 MG TAB PO SCH (08:52)
[2016-10-12] MEDS: LORATADINE 10 MG TAB PO SCH (08:52)
[2016-10-12] MEDS: FAMOTIDINE 20 MG TAB PO SCH ×2 (08:52→21:03)
[2016-10-12] MEDS: GLYCOPYRROLATE 1 MG TAB PO SCH ×3 (08:52→21:02)
--- NOTE | 2016-10-12 11:20 | PN ---
Date/Time of Note Date/Time of Note DATE: 10/12/16 TIME: 11:15 Assessment/Plan VTE Prophylaxis VTE Prophylaxis Intervention: other Lines/Catheters IV [facility]ter [facility]from [facility] Peripheral IV Urinary Cath still in place: No Assessment/Plan Problems: (1) Bilateral hydronephrosis Status: Acute Comment: Duration of time this is been present is unclear. The patient is unable to give useful history. We will follow his renal function and see how he does now these had the double-J stents put in bilaterally with clearance of the obstructing renal stones. (2) Renal and ureteric calculus Status: Chronic Comment: He is her bilateral lower causing obstruction with renal insufficiency. In addition appears that there was purulent material above the stones. The patient reports he did have urinary tract infection at a prior admission at [facility]. Details are unavailable. Ultimately we may need to have those stones treated more definitively as per urology (3) Pyelonephritis Status: Acute Comment: He is on antibiotics we are awaiting cultures from the specimens obtained by the urologist at the procedure (4) Chronic active hepatitis C Status: Chronic Comment: Noted blood and body fluid precautions (5) Essential hypertension Status: Chronic Comment: Stable on treatment (6) Tobacco abuse Status: Chronic Comment: Counseled (7) Acute kidney injury (nontraumatic) Status: Acute Comment: Duration of baseline renal function are unavailable to us. We will hope for the best (8) Tracheostomy present Status: Chronic Comment: He is able to breathe through this and were doing relatively well. (9) COPD (chronic obstructive pulmonary disease) Status: Chronic Comment: At this time his breathing is doing well. Qualifiers: COPD type: unspecified COPD Qualified Code: J44.9 - Chronic obstructive pulmonary disease, unspecified COPD type Subjective 24 Hr Interval Summary Free Text/Dictation Patient reports he is feeling relatively well. Please note he is not the best historian Constitutional: no complaints (Denies fevers chills or sweats) Respiratory: no complaints Cardiovascular: no complaints Gastrointestinal: no complaints Genitourinary: no complaints Exam/Review of Systems Vital Signs Vitals Vital Signs Date Time Temp Pulse Resp B/P Pulse Ox O2 Delivery O2 Flow Rate FiO2 10/12/16 08:27 97.9 83 16 93/53 96 10/12/16 08:19 21 10/12/16 04:00 Room Air Intake and Output 10/11/16 10/11/16 10/12/16 15:00 23:00 07:00 Intake Total 1600 ml 850 ml Output Total 5 ml 600 ml Balance 1595 ml 250 ml Exam Constitutional: alert, oriented Respiratory: clear to auscultation, normal air movement Cardiovascular: nl pulses, regular rate and rhythm Gastrointestinal: nl liver, spleen, non-tender, soft Results Result Diagram: 10/12/16 0510/12/16 0521 Results 24 hrs Laboratory Tests Test 10/12/16 05:21 Anion Gap 20 H Basophils # 0.0 Basophils % 0.1 Blood Urea Nitrogen 81 H Calcium Level 9.2 Carbon Dioxide Level 21 Chloride Level 107 Creatinine 4.41 H Eosinophils # 0.0 Eosinophils % 0.0 Glucose Level 177 Hematocrit 39.0 L Hemoglobin 12.6 L Hemoglobin A1c 5.2 Lymphocytes # 0.5 L Lymphocytes % 6.5 L Mean Corpuscular Hemoglobin 31.3 Mean Corpuscular Hemoglobin Concent 32.3 Mean Corpuscular Volume 96.8 Mean Platelet Volume 11.3 H Monocytes # 0.2 L Monocytes % 2.8 Neutrophils # 7.4 Neutrophils % 90.0 H Nucleated Red Blood Cells # 0.0 Nucleated Red Blood Cells % 0.0 Platelet Count 148 Potassium Level 5.0 Red Blood Count 4.03 L Red Cell Distribution Width 12.8 Sodium Level 143 White Blood Count 8.2 Medications Medications Current Medications Ondansetron HCl (Zofran Tab) 4 mg Q6H PRN PO NAUSEA AND/OR VOMITING; Start 10/10 at 03:00 Acetaminophen (Tylenol Tab) 650 mg Q6H PRN PO PAIN LEVEL 1-3 OR FEVER; Start at 03:00 Famotidine (Pepcid) 20 mg Q12 PO Last administered on 10/12/16 08:52; Admin Dose 20 MG; Start 10/10/16 at 09:00 Ferrous Sulfate (Ferrous Sulfate (Ec)) 325 mg DAILY PO Last administered on 08:52; Admin Dose 325 MG; Start 10/10/16 at 09:00 Loratadine (Claritin) 10 mg DAILY PO Last administered on 10/12/16 08:52; Admin Dose 10 MG; Start 10/10/16 at 09:00 Oxycodone HCl (Oxycontin) 10 mg Q8 PO Last administered on 10/12/16 05:45; Admin Dose 10 MG; Start 10/10/16 at 06:00 Glycopyrrolate (Robinul) 1 mg TID PO Last administered on 10/12/16 08:52; Admin Dose 1 MG; Start 10/10/16 at 09:00 Atenolol (Tenormin) 25 mg HS PO ; Start 10/10/16 at 21:00 Magnesium Hydroxide (Milk Of Mag) 30 ml HS PRN PO CONSTIPATION; Start 10/10/16 at 04:00 Bisacodyl (Dulcolax Supp) 10 mg DAILY PRN [place] CONSTIPATION; Start 10/10/16 at 04: 00 Sodium Biphosphate/ Sodium Phosphate (Fleet Enema) 133 ml DAILY PRN [place] CONSTIPATION; Start 10/10/16 at 04:00 Zolpidem Tartrate 5 mg 5 mg HS PO Last administered on 10/11/16 22:11; Admin Dose 5 MG; Start 10/10/16 at 21:00 Dextrose/Sodium Chloride 1,000 ml @ 50 mls/hr Q20H IV Last administered on 10:53; Admin Dose 50 MLS/HR; Start 10/11/16 at 08:30 Ceftriaxone Sodium (Rocephin) 50 ml @ 100 mls/hr Q24H IVPB Last administered on 10/11/16 16:04; Admin Dose 100 MLS/HR; Start 10/11/16 at 15:30 COLLIN SPARROW MD Oct 12, 2016 11:20
--- NOTE | 2016-10-12 11:55 | RADRPT ---
PROCEDURE: XR Abdomen. CLINICAL INDICATION: Abdomen pain. Postop. Bilateral ureteral stents. TECHNIQUE: AP supine abdomen x-ray. COMPARISON: Intraoperative imaging dated 10/11/2016. FINDINGS: A large amount of stool is present throughout the colon consistent with constipation. There is no evidence of bowel obstruction. There are bilateral ureteral stents in satisfactory position. The calculi in the lower right kidney, right ureter at the upper L4 level, and left ureter at the mid L3 level are once again visualized. There are mild degenerative changes of the spine. IMPRESSION: 1. Bilateral ureteral stents in satisfactory position. 2. Bilateral ureteral calculi. 3. Calculus in lower right kidney. 4. Mild degenerative changes of the spine. RPTAT: QQ .Oli Ford MD, MD Date Time Electronically viewed and signed by .Oli Ford MD, MD on 10/12/2016 11:55 .R/
--- NOTE | 2016-10-12 12:16 | CONS ---
Date/Time of Note Date/Time of Note DATE: 10/12/16 TIME: 12:13 Assessment/Plan Assessment/Plan Additional Assessment/Plan 1. Acute kidney injury secondary to obstructive uropathy secondary to bilateral proximal ureteral stones causing moderate to severe hydronephrosis. 2. Bilateral moderate to severe hydroureteronephrosis secondary to proximal ureteral stones. 3. Bilateral renal stones. 4. Hyperkalemia, status post Kayexalate at [facility]. 5. Metabolic acidosis secondary to obstructive uropathy. 6. History of hypertension, diverticulitis, chronic obstructive pulmonary disease, history of chronic respiratory failure, status post tracheostomy, not on ventilator. PLAN: K normal, HCO3 normal BUN/Cr still high, pt said he has been voiding ok s/p UROLOGY CONSULT- s/p Cystoscopy with JJ stent placement will continue to follow up Consultation Date/Type/Reason Admit Date/Time Oct 10, 2016 at 01:18 Initial Consult Date Oct 10, 2016 Type of Consultation: NEPHROLOGY Reason for Consultation acute kidney injury, obstructive uropathy Referring Provider: JAZZ PAYNE DO 24 HR Interval Summary Free Text/Dictation pt stable,s/p Cystoscopy with JJ stent placement by Urology Exam/Review of Systems Vital Signs Vitals Vital Signs Date Time Temp Pulse Resp B/P Pulse Ox O2 Delivery O2 Flow Rate FiO2 10/12/16 11:24 83 20 92 21 10/12/16 08:27 97.9 93/53 10/12/16 04:00 Room Air Intake and Output 10/11/16 10/11/16 10/12/16 15:00 23:00 07:00 Intake Total 1600 ml 850 ml Output Total 5 ml 600 ml Balance 1595 ml 250 ml Exam GENERAL: Awake, alert, in no distress. HEENT: Normal. Oropharynx clear. NECK: Supple, no JVD, no lymphadenopathy. Tracheostomy site is clear. No erythema, no discharge. LUNGS: Clear to auscultation. No crackles, no wheezes. HEART: S1, S2, with regular rhythm, no murmur. ABDOMEN: Soft, nontender, nondistended. Bowel sounds are present. EXTREMITIES: No clubbing, cyanosis, or edema. NEUROLOGICAL: Nonfocal, intact. Results Result Diagram: 10/12/16 0510/12/16520 Results 24 hrs Laboratory Tests Test 10/12/16 05:21 Anion Gap 20 H Basophils # 0.0 Basophils % 0.1 Blood Urea Nitrogen 81 H Calcium Level 9.2 Carbon Dioxide Level 21 Chloride Level 107 Creatinine 4.41 H Eosinophils # 0.0 Eosinophils % 0.0 Glucose Level 177 Hematocrit 39.0 L Hemoglobin 12.6 L Hemoglobin A1c 5.2 Lymphocytes # 0.5 L Lymphocytes % 6.5 L Mean Corpuscular Hemoglobin 31.3 Mean Corpuscular Hemoglobin Concent 32.3 Mean Corpuscular Volume 96.8 Mean Platelet Volume 11.3 H Monocytes # 0.2 L Monocytes % 2.8 Neutrophils # 7.4 Neutrophils % 90.0 H Nucleated Red Blood Cells # 0.0 Nucleated Red Blood Cells % 0.0 Platelet Count 148 Potassium Level 5.0 Red Blood Count 4.03 L Red Cell Distribution Width 12.8 Sodium Level 143 White Blood Count 8.2 Medications Medications Current Medications Ondansetron HCl (Zofran Tab) 4 mg Q6H PRN PO NAUSEA AND/OR VOMITING; Start 10/10 at 03:00 Acetaminophen (Tylenol Tab) 650 mg Q6H PRN PO PAIN LEVEL 1-3 OR FEVER; Start at 03:00 Famotidine (Pepcid) 20 mg Q12 PO Last administered on 10/12/16 08:52; Admin Dose 20 MG; Start 10/10/16 at 09:00 Ferrous Sulfate (Ferrous Sulfate (Ec)) 325 mg DAILY PO Last administered on 08:52; Admin Dose 325 MG; Start 10/10/16 at 09:00 Loratadine (Claritin) 10 mg DAILY PO Last administered on 10/12/16 08:52; Admin Dose 10 MG; Start 10/10/16 at 09:00 Oxycodone HCl (Oxycontin) 10 mg Q8 PO Last administered on 10/12/16 05:45; Admin Dose 10 MG; Start 10/10/16 at 06:00 Glycopyrrolate (Robinul) 1 mg TID PO Last administered on 10/12/16 08:52; Admin Dose 1 MG; Start 10/10/16 at 09:00 Magnesium Hydroxide (Milk Of Mag) 30 ml HS PRN PO CONSTIPATION; Start 10/10/16 at 04:00 Bisacodyl (Dulcolax Supp) 10 mg DAILY PRN [place] CONSTIPATION; Start 10/10/16 at 04: 00 Sodium Biphosphate/ Sodium Phosphate (Fleet Enema) 133 ml DAILY PRN [place] CONSTIPATION; Start 10/10/16 at 04:00 Zolpidem Tartrate 5 mg 5 mg HS PO Last administered on 10/11/16 22:11; Admin Dose 5 MG; Start 10/10/16 at 21:00 Dextrose/Sodium Chloride 1,000 ml @ 50 mls/hr Q20H IV Last administered on 10:53; Admin Dose 50 MLS/HR; Start 10/11/16 at 08:30 Ceftriaxone Sodium (Rocephin) 50 ml @ 100 mls/hr Q24H IVPB Last administered on 10/11/16 16:04; Admin Dose 100 MLS/HR; Start 10/11/16 at 15:30 Metoprolol Tartrate (Lopressor) 50 mg DAILY PO ; Start 10/12/16 at 11:30 Salmeterol Xinafoate/ Fluticasone (Advair 250/50 Diskus) 1 inh BID INH ; Start 10/12/16 at 21:00 ISIDORO FARMER MD Oct 12, 2016 12:16
[2016-10-12] MEDS: METOPROLOL 50 MG TAB PO SCH (12:56)
--- NOTE | 2016-10-12 14:16 | PN ---
DATE: 10/12/2016 SUBJECTIVE: Bilateral ureteral stones. The patient is status post cystoscopy and insertion of bila teral ureteral JJ stents. SOCIAL HISTORY: At the present he is comfortable and denies any pain. OBJECTIVE VITAL SIGNS: His temperature is 97.9, pulse 83, blood pressure 93/53 and the respiration is 20. ABDOMEN: Soft. The patient just had a KUB and the JJ stents are in good position. The stones in th e right as well as the left ureter are in the same location. LABORATORY DATA: His CBC shows a white count of 8.2, hemoglobin 12.6, hematocrit 39.0, BUN is 81, c reatinine 4.41, sodium 143, potassium 5.0, chloride 107, CO2 21. The cultures from his bladder and both of his kidneys were sent yesterday and so far there is no preliminary report on that. The plan is to continue his antibiotics and also check his culture and at a later date, we will have to brin g him back to do a right ureteroscopy, remove the right ureteral stone and another time bring him in to remove the stone in the left ureter. Dictated By: SKIP LOCO MD BB/BONNIE Conf#: [id number] DID#: [id number]
[2016-10-12] MEDS: CEFTRIAXONE 1 GM/50 ML (PMX) 50 ML IVPB SCH (16:01)
[2016-10-12 19:43] VITALS: BP 95/67; PULSE 75; RESP 18
[2016-10-12] MEDS: SALMETEROL/FLUTICASONE 250/50 INHA INH SCH (21:02)
[2016-10-12 21:29] VITALS: BP 137/83; RESP 18
[2016-10-12] MEDS: ZOLPIDEM 5 MG TAB PO SCH (22:01)
[2016-10-13] MEDS: oxyCODONE (CR) 10 MG TAB [oxyCONTIN] PO SCH ×3 (05:24→21:00)
[2016-10-13] MEDS: DEXTROSE 5%-0.45% NACL 1,000 ML IV SCH (05:27)
[2016-10-13 05:53] LABS: PHOSPHORUS 2.8 mg/dl (2.5-4.9)
[2016-10-13 05:54] LABS: MAGNESIUM 1.8 mg/dl (1.7-2.5)
[2016-10-13 05:56] LABS: POTASSIUM 4.9 mmol/L (3.5-5.1)
[2016-10-13 05:59] LABS: CALCIUM 8.8 mg/dl (8.4-10.2); CREATININE 4.22 mg/dl (0.61-1.24)
[2016-10-13 06:25] LABS: THYROID STIMULATING HORMONE 0.26 MIU/L (0.465-4.680)
[2016-10-13 08:44] VITALS: BP 111/59; RESP 18
[2016-10-13] MEDS: ALBUTEROL/IPRATROPIUM (NEB) 3 ML AMP HHN SCH ×4 (08:55→21:10)
[2016-10-13] MEDS: SALMETEROL/FLUTICASONE 250/50 INHA INH SCH ×2 (09:09→20:58)
[2016-10-13] MEDS: FAMOTIDINE 20 MG TAB PO SCH ×2 (09:10→20:58)
[2016-10-13] MEDS: LORATADINE 10 MG TAB PO SCH (09:10)
[2016-10-13] MEDS: GLYCOPYRROLATE 1 MG TAB PO SCH ×3 (09:10→20:58)
[2016-10-13] MEDS: FERROUS SULFATE (EC) 325 MG TAB PO SCH (09:10)
[2016-10-13] MEDS: METOPROLOL 50 MG TAB PO SCH (09:11)
--- NOTE | 2016-10-13 10:15 | PN ---
Date/Time of Note Date/Time of Note DATE: 10/13/16 TIME: 10:12 Assessment/Plan VTE Prophylaxis VTE Prophylaxis Intervention: LMWH Lines/Catheters IV Catheter Type (from [facility]): Peripheral IV Urinary Cath still in place: No Assessment/Plan Problems: (1) Renal and ureteric calculus Status: Chronic Comment: Is status post bilateral double-J stents. He appears to be draining well. Unfortunately his renal function has not improved which was of been predictable based on the results of the ultrasound. Is quite likely had these obstructing renal calculi for prolonged period of time. He is on antibiotics for the infection was behind the renal stones. He will need some type of outpatient follow-up with possible lithotripsy (2) Bilateral hydronephrosis Status: Acute Comment: Improving with placement of drainage (3) Pyelonephritis Status: Acute Comment: Cultures are consistent with Proteus infection. He is on appropriate antibiotics. (4) Chronic active hepatitis C Status: Chronic Comment: Pending is the viral RNA to determine whether this is active or not. Continue blood and body fluid precautions. (5) Essential hypertension Status: Chronic Comment: Well-controlled (6) Acute kidney injury (nontraumatic) Status: Acute Comment: His renal function is not significantly improved and I have significant fears this can have profound chronic kidney disease on the basis of this obstructive uropathy. While he does not immediately night need dialysis is conceivable that will be coming within 5 years (7) Tracheostomy present Status: Chronic Comment: Noted and stable (8) COPD (chronic obstructive pulmonary disease) Status: Chronic Comment: Noted and stable Qualifiers: COPD type: unspecified COPD Qualified Code: J44.9 - Chronic obstructive pulmonary disease, unspecified COPD type Subjective 24 Hr Interval Summary Free Text/Dictation Patient reports he is anxious to get out of the hospital and go back to his facility. Constitutional: no complaints (Denies fevers chills or sweats) Respiratory: no complaints Cardiovascular: no complaints Gastrointestinal: no complaints Genitourinary: no complaints Exam/Review of Systems Vital Signs Vitals Vital Signs Date Time Temp Pulse Resp B/P Pulse Ox O2 Delivery O2 Flow Rate FiO2 10/13/16 08:58 60 15 97 21 10/13/16 08:44 98.3 111/59 10/12/16 19:43 Room Air Intake and Output 10/12/16 10/12/1617 15:00 23:00 07:00 Intake Total 200 ml 1070 ml 1050 ml Output Total 800 ml Balance 200 ml 270 ml 1050 ml Exam Constitutional: alert, oriented Respiratory: clear to auscultation, normal air movement Cardiovascular: nl pulses, regular rate and rhythm Gastrointestinal: nl liver, spleen, non-tender, soft Results Result Diagram: 10/12/16 0521 10/13/16 0503 Results 24 hrs Laboratory Tests Test 10/12/16 11:35 10/13/16 05:03 10/13/16 05:16 Hepatitis B Surface Antigen NEGATIVE Hepatitis C Antibody REACTIVE H Anion Gap 19 H Blood Urea Nitrogen 86 H Calcium Level 8.8 Carbon Dioxide Level 21 Chloride Level 109 Creatinine 4.22 H Glucose Level 120 # Potassium Level 4.9 Sodium Level 144 Magnesium Level 1.8 Phosphorus Level 2.8 # Thyroid Stimulating Hormone (TSH) 0.260 L Medications Medications Current Medications Ondansetron HCl (Zofran Tab) 4 mg Q6H PRN PO NAUSEA AND/OR VOMITING; Start 10/10 at 03:00 Acetaminophen (Tylenol Tab) 650 mg Q6H PRN PO PAIN LEVEL 1-3 OR FEVER; Start at 03:00 Famotidine (Pepcid) 20 mg Q12 PO Last administered on 10/13/16 09:10; Admin Dose 20 MG; Start 10/10/16 at 09:00 Ferrous Sulfate (Ferrous Sulfate (Ec)) 325 mg DAILY PO Last administered on 09:10; Admin Dose 325 MG; Start 10/10/16 at 09:00 Loratadine (Claritin) 10 mg DAILY PO Last administered on 10/13/16 09:10; Admin Dose 10 MG; Start 10/10/16 at 09:00 Oxycodone HCl (Oxycontin) 10 mg Q8 PO Last administered on 10/13/16 05:24; Admin Dose 10 MG; Start 10/10/16 at 06:00 Glycopyrrolate (Robinul) 1 mg TID PO Last administered on 10/13/16 09:10; Admin Dose 1 MG; Start 10/10/16 at 09:00 Magnesium Hydroxide (Milk Of Mag) 30 ml HS PRN PO CONSTIPATION; Start 10/10/16 at 04:00 Bisacodyl (Dulcolax Supp) 10 mg DAILY PRN [place] CONSTIPATION; Start 10/10/16 at 04: 00 Sodium Biphosphate/ Sodium Phosphate (Fleet Enema) 133 ml DAILY PRN [place] CONSTIPATION; Start 10/10/16 at 04:00 Zolpidem Tartrate 5 mg 5 mg HS PO Last administered on 10/12/16 22:01; Admin Dose 5 MG; Start 10/10/16 at 21:00 Dextrose/Sodium Chloride (D5-1/2ns) 1,000 ml @ 50 mls/hr Q20H IV Last administered on 10/13/16 05:27; Admin Dose 50 MLS/HR; Start 10/11/16 at 08:30 Metoprolol Tartrate (Lopressor) 50 mg DAILY PO Last administered on 10/13/16 09:11; Admin Dose 50 MG; Start 10/12/16 at 11:30 Salmeterol Xinafoate/ Fluticasone 1 inh 1 inh BID INH Last administered on 10/13 09:09; Admin Dose 1 INH; Start 10/12/16 at 21:00 Cefotaxime Sodium (Claforan 1gm/50 ml (Pmx)) 50 ml @ 100 mls/hr Q12 IVPB ; Start 10/13/16 at 21:00; Stop 10/20/16 at 20:59; Status COLLIN ROBLEDO MD Oct 13, 2016 10:15
[2016-10-13 20:40] VITALS: BP 102/67; RESP 18
[2016-10-13] MEDS: ZOLPIDEM 5 MG TAB PO SCH (20:57)
[2016-10-13] MEDS: CEFOTAXIME 1 GM/50 ML (PMX) 50 ML IVPB SCH (20:59)
--- NOTE | 2016-10-13 21:45 | PN ---
DATE: 10/13/2016 SUBJECTIVE: The patient is breathing better. He denies having any pain, and he is voiding well and the urine is clear. OBJECTIVE: VITAL SIGNS: His temperature is 98.3, respirations 18, pulse 66, blood pressure 111/59. ABDOMEN: Soft and there is no abdominal tenderness. LABORATORY DATA: The urine culture from the left kidney, urine culture from the right kidney and ur ine culture from the bladder, they all grew Proteus mirabilis that is resistant to ampicillin, sensi tive to cefotaxime, resistant to Cipro, sensitive to gentamicin and tobramycin, resistant to Bactrim . The patient therefore was placed on cefotaxime. The CBC shows a white count of 8.2, hemoglobin 1 2.6, hematocrit 39.0. BUN is 86, creatinine 4.22, down from 4.41 but still significantly high. IMPRESSION: 1. Bilateral ureteral stones that were obstructing the kidney. 2. Bilateral pyelonephritis. 3. Urinary tract infection. PLAN: Continue him on the IV antibiotic. The patient does have the JJ stents that are draining his kidneys, and we will have to bring him back later on to remove the stone from the right ureter firs t and then at a later date remove the stone from the left ureter. Dictated By: SKIP KIM/BONNIE Conf#: [id number] DID#: [id number]
--- NOTE | 2016-10-13 22:16 | CONS ---
Date/Time of Note Date/Time of Note DATE: 10/13/16 TIME: 22:15 Assessment/Plan Assessment/Plan Additional Assessment/Plan 1. Acute kidney injury secondary to obstructive uropathy secondary to bilateral proximal ureteral stones causing moderate to severe hydronephrosis. 2. Bilateral moderate to severe hydroureteronephrosis secondary to proximal ureteral stones. 3. Bilateral renal stones. 4. Hyperkalemia, resolved 5. Metabolic acidosis secondary to obstructive uropathy. 6. History of hypertension, diverticulitis, chronic obstructive pulmonary disease, history of chronic respiratory failure, status post tracheostomy, not on ventilator. PLAN: K normal, HCO3 normal BUN/Cr still high, pt said he has been voiding ok s/p UROLOGY CONSULT- s/p Cystoscopy with JJ stent placement will continue to follow up Consultation Date/Type/Reason Admit Date/Time Oct 10, 2016 at 01:18 Initial Consult Date Oct 10, 2016 Type of Consultation: NEPHROLOGY Referring Provider: JAZZ PAYNE DO 24 HR Interval Summary Free Text/Dictation BUN/Cr slightly improved, BP stable Exam/Review of Systems Vital Signs Vitals Vital Signs Date Time Temp Pulse Resp B/P Pulse Ox O2 Delivery O2 Flow Rate FiO2 10/13/16 21:13 71 20 97 21 10/13/16 20:40 97.8 102/67 10/12/16 19:43 Room Air Intake and Output 10/12/16 10/12/16 10/13/16 15:00 23:00 07:00 Intake Total 200 ml 1070 ml 1050 ml Output Total 800 ml Balance 200 ml 270 ml 1050 ml Results Result Diagram: 10/12/16 0521 10/13/16 0503 Results 24 hrs Laboratory Tests Test 10/13/16 05:03 10/13/16 05:16 Anion Gap 19 H Blood Urea Nitrogen 86 H Calcium Level 8.8 Carbon Dioxide Level 21 Chloride Level 109 Creatinine 4.22 H Glucose Level 120 # Potassium Level 4.9 Sodium Level 144 Magnesium Level 1.8 Phosphorus Level 2.8 # Thyroid Stimulating Hormone (TSH) 0.260 L Medications Medications Current Medications Ondansetron HCl (Zofran Tab) 4 mg Q6H PRN PO NAUSEA AND/OR VOMITING; Start 10/10 at 03:00 Acetaminophen (Tylenol Tab) 650 mg Q6H PRN PO PAIN LEVEL 1-3 OR FEVER; Start at 03:00 Famotidine (Pepcid) 20 mg Q12 PO Last administered on 10/13/16 20:58; Admin Dose 20 MG; Start 10/10/16 at 09:00 Ferrous Sulfate (Ferrous Sulfate (Ec)) 325 mg DAILY PO Last administered on 09:10; Admin Dose 325 MG; Start 10/10/16 at 09:00 Loratadine (Claritin) 10 mg DAILY PO Last administered on 10/13/16 09:10; Admin Dose 10 MG; Start 10/10/16 at 09:00 Oxycodone HCl (Oxycontin) 10 mg Q8 PO Last administered on 10/13/16 21:00; Admin Dose 10 MG; Start 10/10/16 at 06:00 Glycopyrrolate (Robinul) 1 mg TID PO Last administered on 10/13/16 20:58; Admin Dose 1 MG; Start 10/10/16 at 09:00 Magnesium Hydroxide (Milk Of Mag) 30 ml HS PRN PO CONSTIPATION; Start 10/10/16 at 04:00 Bisacodyl (Dulcolax Supp) 10 mg DAILY PRN [place] CONSTIPATION; Start 10/10/16 at 04: 00 Sodium Biphosphate/ Sodium Phosphate (Fleet Enema) 133 ml DAILY PRN [place] CONSTIPATION; Start 10/10/16 at 04:00 Zolpidem Tartrate 5 mg 5 mg HS PO Last administered on 10/13/16 20:57; Admin Dose 5 MG; Start 10/10/16 at 21:00 Dextrose/Sodium Chloride (D5-1/2ns) 1,000 ml @ 50 mls/hr Q20H IV Last administered on 10/13/16 05:27; Admin Dose 50 MLS/HR; Start 10/11/16 at 08:30 Metoprolol Tartrate (Lopressor) 50 mg DAILY PO Last administered on 10/13/16 09:11; Admin Dose 50 MG; Start 10/12/16 at 11:30 Salmeterol Xinafoate/ Fluticasone 1 inh 1 inh BID INH Last administered on 10/13 20:58; Admin Dose 1 INH; Start 10/12/16 at 21:00 Cefotaxime Sodium (Claforan 1gm/50 ml (Pmx)) 50 ml @ 100 mls/hr Q12 IVPB Last administered on 10/13/16t 20:59; Admin Dose 100 MLS/HR; Start 10/13/16 at 21:00 ; Stop 10/20/16 at 20:59 ISIDORO FARMER MD Oct 13, 2016 22:15
[2016-10-14] MEDS: DEXTROSE 5%-0.45% NACL 1,000 ML IV SCH (03:20)
[2016-10-14 05:50] LABS: POTASSIUM 4.4 mmol/L (3.5-5.1)
[2016-10-14 05:53] LABS: CALCIUM 8.3 mg/dl (8.4-10.2); CREATININE 3.6 mg/dl (0.61-1.24)
[2016-10-14] MEDS: oxyCODONE (CR) 10 MG TAB [oxyCONTIN] PO SCH ×3 (06:00→21:08)
[2016-10-14 08:00] VITALS: BP 95/61; RESP 17
[2016-10-14] MEDS: ALBUTEROL/IPRATROPIUM (NEB) 3 ML AMP HHN SCH ×4 (08:35→20:25)
[2016-10-14] MEDS: LORATADINE 10 MG TAB PO SCH (08:59)
[2016-10-14] MEDS: FERROUS SULFATE (EC) 325 MG TAB PO SCH (08:59)
[2016-10-14] MEDS: GLYCOPYRROLATE 1 MG TAB PO SCH ×3 (08:59→21:08)
[2016-10-14] MEDS: FAMOTIDINE 20 MG TAB PO SCH ×2 (08:59→21:08)
[2016-10-14] MEDS: SALMETEROL/FLUTICASONE 250/50 INHA INH SCH ×2 (08:59→21:07)
[2016-10-14] MEDS: METOPROLOL 50 MG TAB PO SCH (09:00)
[2016-10-14] MEDS: CEFOTAXIME 1 GM/50 ML (PMX) 50 ML IVPB SCH ×2 (09:00→21:10)
[2016-10-14 09:42] VITALS: BP 102/66; PULSE 76
[2016-10-14] MEDS ORDERED: CEFT1PIG2 IVPB (15:16)
--- NOTE | 2016-10-14 15:26 | DS ---
Date/Time of Note Date/Time of Note DATE: 10/14/16 TIME: 15:17 Discharge Summary Admission/Discharge Info Admit Date/Time Oct 10, 2016 at 01:18 Discharge Date/Time Final Diagnosis 1. Bilateral ureteral stones causing obstruction and hydronephrosis, s/p Bilaterqal JJ stent, follow up with Dr. Millan after antibiotics is finished 2. Obstructive uropathy with acute renal failure, improving, follow up with PCP 3.UTI, rocephin 10 days 4. Hypertension, controlled 5. Chronic obstructive pulmonary disease, status post tracheostomy, not on ventilator. Patient Condition: Stable Hospital Course This is a 56-year-old male who initially presented to [facility] because of having abdominal pain and he had a CT scan of the abdomen and pelvis which showed bilateral hydronephrosis with bilateral renal stones and there was a large stone in the right upper ureter and another stone in the left upper ureter, both of them causing obstruction and there is thinning of the renal parenchyma, with a creatinine of 4.6 and a BUN of 83. He was then transferred to [facility], [place] for further management. Patient got Cystoscopy and insertion of bilateral ureteral JJ stents on 2016. Both sides 6-Croatian x 26 cm long. On the left side, tried to manipulate the stone and lubricate it to see if it will facilitate the passage of the wire and also hoping that we will be able to push it into the kidney, but it would not. Patient will follow up with Dr. Millan for further procedures after UTI is fully treated. Urine culture positive with PROTEUS MIRABILIS that is resistant to levaquin/ cipro./bactrim but sensitive to rocephin. Patient has been on rocephin and will be on rocephin for 10days. Home Meds Active Scripts Ceftriaxone Sod* (Rocephin* 1GM/50ML (PMX)) 1 Gm/50 Ml Iv.soln., 1 GM IVPB Q24H for 10 Days, EA Prov:SANDY MENDOSA MD 10/14/16 Follow-up Plan Dr. Millan in 10 days PCP in one week Pending Labs Laboratory Tests Test 10/14/16 05:20 Anion Gap 17 (8-16) Blood Urea Nitrogen 78mg/dl (7-20) Calcium Level 8.3mg/dl (8.4-10.2) Carbon Dioxide Level 21mmol/L (21-31) Chloride Level 110mmol/L (97-110) Creatinine 3.60mg/dl (0.61-1.24) Glucose Level 108mg/dl (70-220) Potassium Level 4.4mmol/L (3.5-5.1) Sodium Level 144mmol/L (135-144) SANDY MENDOSA MD Oct 14, 2016 15:26
[2016-10-14] MEDS ORDERED: LIDOCAINE 1% (MDV) 20 ML INJ SC ONE (16:00)
--- NOTE | 2016-10-14 16:35 | CONS ---
Date/Time of Note Date/Time of Note DATE: 10/14/16 TIME: 16:32 Assessment/Plan Assessment/Plan Additional Assessment/Plan 1. Acute kidney injury secondary to obstructive uropathy secondary to bilateral proximal ureteral stones causing moderate to severe hydronephrosis. 2. Bilateral moderate to severe hydroureteronephrosis secondary to proximal ureteral stones. 3. Bilateral renal stones. 4. Hyperkalemia, resolved 5. Metabolic acidosis secondary to obstructive uropathy. 6. History of hypertension, diverticulitis, chronic obstructive pulmonary disease, history of chronic respiratory failure, status post tracheostomy, not on ventilator. PLAN: K normal, HCO3 normal BUN/Cr slowy improving, pt has been voiding ok s/p UROLOGY CONSULT- s/p Cystoscopy with JJ stent placement will continue to follow up Consultation Date/Type/Reason Admit Date/Time Oct 10, 2016 at 01:18 Initial Consult Date Oct 10, 2016 Type of Consultation: NEPHROLOGY Reason for Consultation acute Kidney injury, Obstructive uropathy Referring Provider: JAZZ PAYNE DO 24 HR Interval Summary Free Text/Dictation BUN/Cr slowly improving, BP stable, afebrile, Exam/Review of Systems Vital Signs Vitals Vital Signs Date Time Temp Pulse Resp B/P Pulse Ox O2 Delivery O2 Flow Rate FiO2 10/14/16 15:15 80 20 95 21 10/14/16 09:42 102/66 10/14/16 08:00 97.4 10/12/16 19:43 Room Air Intake and Output 10/13/16 10/13/16 10/14/16 15:00 23:00 07:00 Intake Total 1610 ml 1150 ml Output Total 2000 ml 2100 ml Balance -390 ml -950 ml Exam GENERAL: Awake, alert, in no distress. HEENT: Normal. Oropharynx clear. NECK: Supple, no JVD, no lymphadenopathy. Tracheostomy site is clear. No erythema, no discharge. LUNGS: Clear to auscultation. No crackles, no wheezes. HEART: S1, S2, with regular rhythm, no murmur. ABDOMEN: Soft, nontender, nondistended. Bowel sounds are present. EXTREMITIES: No clubbing, cyanosis, or edema. NEUROLOGICAL: Nonfocal, intact. Results Result Diagram: 10/12/16 0521 10/14/16 0520 Results 24 hrs Laboratory Tests Test 10/14/16 05:20 Anion Gap 17 H Blood Urea Nitrogen 78 H Calcium Level 8.3 L Carbon Dioxide Level 21 Chloride Level 110 Creatinine 3.60 H Glucose Level 108 Potassium Level 4.4 Sodium Level 144 Medications Medications Current Medications Ondansetron HCl (Zofran Tab) 4 mg Q6H PRN PO NAUSEA AND/OR VOMITING; Start 10/10 at 03:00 Acetaminophen (Tylenol Tab) 650 mg Q6H PRN PO PAIN LEVEL 1-3 OR FEVER; Start at 03:00 Famotidine (Pepcid) 20 mg Q12 PO Last administered on 10/14/16 08:59; Admin Dose 20 MG; Start 10/10/16 at 09:00 Ferrous Sulfate (Ferrous Sulfate (Ec)) 325 mg DAILY PO Last administered on 08:59; Admin Dose 325 MG; Start 10/10/16 at 09:00 Loratadine (Claritin) 10 mg DAILY PO Last administered on 10/14/16 08:59; Admin Dose 10 MG; Start 10/10/16 at 09:00 Oxycodone HCl (Oxycontin) 10 mg Q8 PO Last administered on 10/14/16 14:19; Admin Dose 10 MG; Start 10/10/16 at 06:00 Glycopyrrolate (Robinul) 1 mg TID PO Last administered on 10/14/16 13:14; Admin Dose 1 MG; Start 10/10/16 at 09:00 Magnesium Hydroxide (Milk Of Mag) 30 ml HS PRN PO CONSTIPATION; Start 10/10/16 at 04:00 Bisacodyl (Dulcolax Supp) 10 mg DAILY PRN [place] CONSTIPATION; Start 10/10/16 at 04: 00 Sodium Biphosphate/ Sodium Phosphate (Fleet Enema) 133 ml DAILY PRN [place] CONSTIPATION; Start 10/10/16 at 04:00 Zolpidem Tartrate 5 mg 5 mg HS PO Last administered on 10/13/16 20:57; Admin Dose 5 MG; Start 10/10/16 at 21:00 Dextrose/Sodium Chloride (D5-1/2ns) 1,000 ml @ 50 mls/hr Q20H IV Last administered on 10/14/16 03:20; Admin Dose 50 MLS/HR; Start 10/11/16 at 08:30 Metoprolol Tartrate (Lopressor) 50 mg DAILY PO Last administered on 10/13/16 09:11; Admin Dose 50 MG; Start 10/12/16 at 11:30 Salmeterol Xinafoate/ Fluticasone 1 inh 1 inh BID INH Last administered on 10/14 08:59; Admin Dose 1 INH; Start 10/12/16 at 21:00 Cefotaxime Sodium (Claforan 1gm/50 ml (Pmx)) 50 ml @ 100 mls/hr Q12 IVPB Last administered on 10/14/16 09:00; Admin Dose 100 MLS/HR; Start 10/13/16 at 21:00 ; Stop 10/20/16 at 20:59 ISIDORO FARMER MD Oct 14, 2016 16:35
--- NOTE | 2016-10-14 17:40 | RADRPT ---
PROCEDURE: XR Chest. CLINICAL INDICATION: Check PICC line position. TECHNIQUE: Single frontal view. COMPARISON: 10/10/2016. FINDINGS: There is a right arm PICC line with the tip in the upper superior vena cava. The tracheostomy tube is in satisfactory and unchanged position. There is left basilar atelectasis and elevation of the l eft hemidiaphragm, unchanged. The right lung base is not included on the image. The heart size is normal. There is no pleural effusion or pneumothorax demonstrated. There are severe degenerative changes of the right glenohumeral joint. IMPRESSION: 1. Satisfactory position of right arm PICC line. 2. No other change from 10/10/2016. RPTAT: QQ .Oli Ford MD, MD Date Time Electronically viewed and signed by .Oli Ford MD, on 10/14/2016 17:40 .R/
--- NOTE | 2016-10-14 18:18 | RADRPT ---
PROCEDURE: Ultrasound guidance for placement of needle in right upper extremity vein. CLINICAL INDICATION: Venous access. TECHNIQUE: Limited sonography of the right upper extremity was performed. Ultrasound images were recorded and stored in the patient's medical record. COMPARISON: None. FINDINGS: The ultrasound images demonstrate a patent right upper extremity vein. The PICC line was inserted b y the PICC line nurse. IMPRESSION: 1. Ultrasound guidance for a needle placement in a right upper extremity vein. 2. The visualized right upper extremity vein is patent. RPTAT: QQ .Oli Fodr MD, MD Date Time Electronically viewed and signed by .Oli Ford MD, MD on 10/14/2016 18:18 .R/
--- NOTE | 2016-10-14 18:20 | PN ---
DATE: 10/14/2016 SUBJECTIVE: Bilateral ureteral stones, status post insertion of bilateral JJ stents. The patient a lso has bilateral pyelonephritis that is resistant to oral antibiotic, and he did have a PICC line i nserted today, and he is going to go with a PICC line and IV antibiotic at home. The patient is fee ling much better. OBJECTIVE: VITAL SIGNS: His temperature 97.4, blood pressure 102/66, pulse 80, respiration 20. ABDOMEN: Soft. The BUN is 78. Creatinine for the first time it is 3.6, which has improved, and hopefully it will c ontinue to improve. The cultures, as already mentioned before, he has Proteus mirabilis that is sen sitive to cefotaxime, and he is going to continue that in the facility where he lives. I will schedule him to come back to undergo the ureteroscopy and laser lithotripsy to the right uret eral stone and a later date to the left ureteral stone. Dictated By: SKIP KIM/BONNIE Conf#: [id number] DID#: [id number]
[2016-10-14] MEDS ORDERED: SOD CHLORIDE 0.9% 100 ML ONE (18:31)
[2016-10-14 19:43] VITALS: BP 110/79; RESP 18
[2016-10-14] MEDS: ZOLPIDEM 5 MG TAB PO SCH (21:08)
[2016-10-15] MEDS: oxyCODONE (CR) 10 MG TAB [oxyCONTIN] PO SCH ×2 (06:04→12:59)
[2016-10-15] MEDS: DEXTROSE 5%-0.45% NACL 1,000 ML IV SCH (06:36)
[2016-10-15 08:07] VITALS: BP 101/62; RESP 18
[2016-10-15] MEDS: FAMOTIDINE 20 MG TAB PO SCH (08:12)
[2016-10-15] MEDS: SALMETEROL/FLUTICASONE 250/50 INHA INH SCH (08:12)
[2016-10-15] MEDS: CEFOTAXIME 1 GM/50 ML (PMX) 50 ML IVPB SCH (08:12)
[2016-10-15] MEDS: GLYCOPYRROLATE 1 MG TAB PO SCH ×2 (08:12→12:59)
[2016-10-15] MEDS: FERROUS SULFATE (EC) 325 MG TAB PO SCH (08:12)
[2016-10-15] MEDS: METOPROLOL 50 MG TAB PO SCH (08:13)
[2016-10-15] MEDS: LORATADINE 10 MG TAB PO SCH (08:13)
[2016-10-15] MEDS: ALBUTEROL/IPRATROPIUM (NEB) 3 ML AMP HHN SCH ×2 (08:50→11:58)
--- NOTE | 2016-10-15 11:14 | CONS ---
Date/Time of Note Date/Time of Note DATE: 10/15/16 TIME: 11:13 Assessment/Plan Assessment/Plan Additional Assessment/Plan 1. Acute kidney injury secondary to obstructive uropathy secondary to bilateral proximal ureteral stones causing moderate to severe hydronephrosis. 2. Bilateral moderate to severe hydroureteronephrosis secondary to proximal ureteral stones. 3. Bilateral renal stones. 4. Hyperkalemia, resolved 5. Metabolic acidosis secondary to obstructive uropathy. 6. History of hypertension, diverticulitis, chronic obstructive pulmonary disease, history of chronic respiratory failure, status post tracheostomy, not on ventilator. PLAN: K normal, HCO3 normal BUN/Cr slowy improving, pt has been voiding ok s/p UROLOGY CONSULT- s/p Cystoscopy with JJ stent placement will continue to follow up Consultation Date/Type/Reason Admit Date/Time Oct 10, 2016 at 01:18 Initial Consult Date Oct 10, 2016 Type of Consultation: NEPHROLOGY Referring Provider: JAZZ PAYNE DO 24 HR Interval Summary Free Text/Dictation stable, BUN/Cr improving, BP stable, afebrile ,pt did not get discharged yesterday Exam/Review of Systems Vital Signs Vitals Vital Signs Date Time Temp Pulse Resp B/P Pulse Ox O2 Delivery O2 Flow Rate FiO2 10/15/16 08:50 90 20 97 21 10/15/16 08:07 97.5 101/62 10/12/16 19:43 Room Air Intake and Output 10/14/16 10/14/16 10/15/16 15:00 23:00 07:00 Intake Total 50 ml 1500 ml 740 ml Output Total 900 ml 950 ml Balance 50 ml 600 ml -210 ml Exam GENERAL: Awake, alert, in no distress. HEENT: Normal. Oropharynx clear. NECK: Supple, no JVD, no lymphadenopathy. Tracheostomy site is clear. No erythema, no discharge. LUNGS: Clear to auscultation. No crackles, no wheezes. HEART: S1, S2, with regular rhythm, no murmur. ABDOMEN: Soft, nontender, nondistended. Bowel sounds are present. EXTREMITIES: No clubbing, cyanosis, or edema. NEUROLOGICAL: Nonfocal, intact. Results Result Diagram: 10/12/16 0521 10/14/16519 Medications Medications Current Medications Ondansetron HCl (Zofran Tab) 4 mg Q6H PRN PO NAUSEA AND/OR VOMITING; Start 10/10 at 03:00 Acetaminophen (Tylenol Tab) 650 mg Q6H PRN PO PAIN LEVEL 1-3 OR FEVER; Start at 03:00 Famotidine (Pepcid) 20 mg Q12 PO Last administered on 10/15/16 08:12; Admin Dose 20 MG; Start 10/10/16 at 09:00 Ferrous Sulfate (Ferrous Sulfate (Ec)) 325 mg DAILY PO Last administered on 08:12; Admin Dose 325 MG; Start 10/10/16 at 09:00 Loratadine (Claritin) 10 mg DAILY PO Last administered on 10/15/16 08:13; Admin Dose 10 MG; Start 10/10/16 at 09:00 Oxycodone HCl (Oxycontin) 10 mg Q8 PO Last administered on 10/15/16 06:04; Admin Dose 10 MG; Start 10/10/16 at 06:00 Glycopyrrolate (Robinul) 1 mg TID PO Last administered on 10/15/16 08:12; Admin Dose 1 MG; Start 10/10/16 at 09:00 Magnesium Hydroxide (Milk Of Mag) 30 ml HS PRN PO CONSTIPATION; Start 10/10/16 at 04:00 Bisacodyl (Dulcolax Supp) 10 mg DAILY PRN [place] CONSTIPATION; Start 10/10/16 at 04: 00 Sodium Biphosphate/ Sodium Phosphate (Fleet Enema) 133 ml DAILY PRN [place] CONSTIPATION; Start 10/10/16 at 04:00 Zolpidem Tartrate 5 mg 5 mg HS PO Last administered on 10/14/16 21:08; Admin Dose 5 MG; Start 10/10/16 at 21:00 Dextrose/Sodium Chloride (D5-1/2ns) 1,000 ml @ 50 mls/hr Q20H IV Last administered on 10/15/16 06:36; Admin Dose 50 MLS/HR; Start 10/11/16 at 08:30 Metoprolol Tartrate (Lopressor) 50 mg DAILY PO Last administered on 10/13/16 09:11; Admin Dose 50 MG; Start 10/12/16 at 11:30 Salmeterol Xinafoate/ Fluticasone 1 inh 1 inh BID INH Last administered on 10/15 08:12; Admin Dose 1 INH; Start 10/12/16 at 21:00 Cefotaxime Sodium (Claforan 1gm/50 ml (Pmx)) 50 ml @ 100 mls/hr Q12 IVPB Last administered on 10/15/16 08:12; Admin Dose 100 MLS/HR; Start 10/13/16 at 21:00 ; Stop 10/20/16 at 20:59 IV Flush (NS 10 ml) 10 ml PRN PRN IV FLUSH LINE; Start 10/14/16 at 18:30 ISIDORO FARMER MD Oct 15, 2016 11:14
[2016-10-15] MEDS ORDERED: OXYC10TA63 PO (13:57)
[2016-10-15] MEDS ORDERED: LORA10TA3 PO (13:57)
[2016-10-15] MEDS ORDERED: ROB1 PO (13:57)
[2016-10-15] MEDS ORDERED: METO-429 PO (13:57)
[2016-10-15] MEDS ORDERED: ADV25050 INH (13:57)
--- NOTE | 2016-10-15 13:59 | DS ---
Date/Time of Note Date/Time of Note DATE: 10/15/16 TIME: 13:58 Discharge Summary Admission/Discharge Info Admit Date/Time Oct 10, 2016 at 01:18 Discharge Date/Time Final Diagnosis 1. Bilateral ureteral stones causing obstruction and hydronephrosis, s/p Bilaterqal JJ stent, follow up with Dr. Millan after antibiotics is finished 2. Obstructive uropathy with acute renal failure, improving, follow up with PCP 3.UTI, rocephin 10 days 4. Hypertension, controlled 5. Chronic obstructive pulmonary disease, status post tracheostomy, not on ventilator. Patient Condition: Stable Hospital Course This is a 56-year-old male who initially presented to [facility] because of having abdominal pain and he had a CT scan of the abdomen and pelvis which showed bilateral hydronephrosis with bilateral renal stones and there was a large stone in the right upper ureter and another stone in the left upper ureter, both of them causing obstruction and there is thinning of the renal parenchyma, with a creatinine of 4.6 and a BUN of 83. He was then transferred to [facility] for further management. Patient got Cystoscopy and insertion of bilateral ureteral JJ stents on 2016. Both sides 6-Lao x 26 cm long. On the left side, tried to manipulate the stone and lubricate it to see if it will facilitate the passage of the wire and also hoping that we will be able to push it into the kidney, but it would not. Patient will follow up with Dr. Millan for further procedures after UTI is fully treated. Urine culture positive with PROTEUS MIRABILIS that is resistant to levaquin/ cipro./bactrim but sensitive to rocephin. Patient has been on rocephin and will be on rocephin for 10days. Home Meds Active Scripts Glycopyrrolate* (Robinul*) 1 Mg Tab, 1 MG PO TID for 30 Days, TAB Prov:SANDY MENDOSA MD 10/15/16 Loratadine* (Loratadine*) 10 Mg Tablet, 10 MG PO DAILY for 30 Days, TAB Prov:SANDY MENDOSA MD 10/15/16 Metoprolol Tartrate* (Lopressor*) 50 Mg Tab, 50 MG PO DAILY for 30 Days, TAB Prov:SANDY MENDOSA MD 10/15/16 Oxycodone Hcl* (Oxycontin*) 10 Mg Tab.sr.12h, 10 MG PO Q8 for 30 Days Prov:SANDY MENDOSA MD 10/15/16 Salmeterol Xinaf/Fluticasone* (Advair*) 250-50 Diskus Inhaler, 1 INH INH BID for 30 Days Prov:SANDY MENDOSA MD 10/15/16 Ceftriaxone Sod* (Rocephin* 1GM/50ML (PMX)) 1 Gm/50 Ml Iv.soln., 1 GM IVPB Q24H for 10 Days, EA Prov:SANDY MENDOSA MD 10/14/16 Follow-up Plan Dr. Millan in 10 days PCP in 1 week SANDY MENDOSA MD Oct 15, 2016 13:59
== END 2016-10-15 14:17 | DRG 683 ==
LOC: PP2 10-10 01:18
PROVIDERS: ADMIT Family Medicine; ATTEND Family Medicine
PROC: 0T788DZ Dilation of Bilateral Ureters with Intraluminal Device, Via Natural or Artificial Opening Endoscopic (ICD-10-PCS; principal; 2016-10-11 17:30)
PROC: 02HV33Z Insertion of Infusion Device into Superior Vena Cava, Percutaneous Approach (ICD-10-PCS; 2016-10-14)
PROC: B548ZZA Ultrasonography of Superior Vena Cava, Guidance (ICD-10-PCS; 2016-10-14)
DX: N17.9 Acute kidney failure, unspecified (principal); E87.2 Acidosis; J96.10 Chronic respiratory failure, unspecified whether with hypoxia or hypercapnia; Z93.0 Tracheostomy status; E87.5 Hyperkalemia; J44.9 Chronic obstructive pulmonary disease, unspecified; N10 Acute pyelonephritis; N39.0 Urinary tract infection, site not specified; N13.2 Hydronephrosis with renal and ureteral calculous obstruction; I10 Essential (primary) hypertension; F17.210 Nicotine dependence, cigarettes, uncomplicated; B18.2 Chronic viral hepatitis C; D63.8 Anemia in other chronic diseases classified elsewhere; B96.4 Proteus (mirabilis) (morganii) as the cause of diseases classified elsewhere
CPT/HCPCS: 36569; 71010; 74000; 74430; 76937; 80048; 80053; 80061; 81001; 81003; 82140; 82330; 83036; 83735; 84100; 84155; 84300; 84439; 84443; 85025; 85610; 85651; 85730; 86038; 86060; 86803; 87081; 87086; 87340; 93005; 94640; 94664; C2617; J0696; J0698; J1100; J1885; J2250; J2370; J2405; J2765; J3010; J7042

== ENCOUNTER → 2016-10-26 | Day surgery (SDC) | payer OTHER ==
--- NOTE | 2016-10-22 15:55 | OPPN ---
Date/Time of Note Date/Time of Note DATE: 10/22/16 TIME: 15:52 Anesthesia Follow up Anesthesia Follow up Respiratory function: WNL Cardiovascular function: WNL Comments Patient went under spinal anesthesia oin 10/11/16 for cystoscopy and bilateral ureteral stent placement, intrathecal narcotic was used to manage post operative pain. Patient did very well, considering his history of HTN, COPD and history of drug abuse, and hydronephrosis, no complication post op, no motor or sensory deficit, his vital signs remained stable post op, afebrile, no nausea or vomiting or apnea reported. His primary team will follow up. ASHLEIGH REEDER MD Oct 22, 2016 15:55
[2016-10-25 10:04] VITALS: Ht 195.6 cm; Wt 95.0 kg
[2016-10-26] VITALS (18 sets, daily range): BP systolic 97–134; BP diastolic 56–87; PULSE 52–85; RESP 13–29
[~2016-10-26] VITALS: Ht 195.6 cm; Wt 95.0 kg
[~2016-10-26] MED LIST: ADV25050 INH; CEFT1PIG2 IVPB; CEFTRIAXONE 1 GM/50 ML (PMX) 50 ML IVPB ONE; DIPHENHYDRAMINE 50 MG INJ IV PRN; ETOMIDATE 20 MG INJ ONE; FENTAnyl 50 MCG/ML VIAL IV PRN; FENTAnyl 50 MCG/ML VIAL ONE; HYDROCODONE/APAP (5/325) TAB PO PRN; HYDROmorphONE (0.2 MG/ML) 10ML SYG IV PRN; LIDOCAINE 2% (SDV) 5 ML INJ ONE; LORA10TA3 PO; MEPERIDINE 25 MG INJ IV PRN; METO-429 PO; MIDAZOLAM 1 MG/ML 2 ML INJ ONE; ONDANSETRON 4 MG INJ IV PRN; ONDANSETRON 4 MG INJ ONE; OXYC10TA63 PO; ROB1 PO; ROCURONIUM 50 MG INJ ONE
--- NOTE | 2016-10-26 09:10 | HPN ---
Date/Time of Note Date/Time of Note DATE: 10/26/16 TIME: 09:09 Interval H&P Admission Note Pt. seen H&P reviewed: No system changes SKIP LCOO MD Oct 26, 2016 09:10
--- NOTE | 2016-10-26 10:17 | HP ---
DATE OF ADMISSION: 10/26/2016 CHIEF COMPLAINT: This patient does have bilateral upper ureteral stones with renal failure. He is status post insertion of bilateral ureteral JJ stents, and he is being admitted today for cystoscopy and right ureteroscopy, laser lithotripsy to the right upper ureteral stone, removal and replacemen t of the JJ stents. HISTORY OF PRESENT ILLNESS: This is a 56-year-old male who around 10/10/2016 initially presented to [facility], then he was transferred to [facility] because his ins urance is capitated to [facility]. The patient had a CT scan at that time and was found to have bilateral hydronephrosis and bilateral upper ureteral stones that were obstructing both sides. Consequently, he underwent cystoscopy and insertion of bilateral JJ stents. He did have infection in both kidneys as well as in the urine. He was therefore treated with antibiotic and discharged t o the facility where he lives. He is being admitted today to undergo a cystoscopy, right ureterosco py and try to remove the right upper ureteral stone and at the same time we will remove the old JJ s tents and put new JJ stents for him. PAST MEDICAL HISTORY: In addition to what is mentioned above, the patient does have a history of ch ronic respiratory failure. He did have a tracheostomy, he was decannulated. He has a history of hy pertension, history of diverticulitis, anemia, chronic kidney disease, hepatitis C and liver cirrhos is. SOCIAL HISTORY: He used to be a smoker and still a smoker. He has had a history of drug abuse in t he past. ALLERGIES: THE PATIENT HAS NO KNOWN DRUG ALLERGIES. MEDICATIONS: He has been on include: 1. Atenolol. 2. Ambien. 3. Pepcid. 4. Ferrous sulfate. 5. Claritin. 6. Robinul. 7. Albuterol. 8. Ipratropium. 9. P.r.n. medications for constipation and fever. PHYSICAL EXAMINATION: GENERAL: Reveals a 56-year-old male who is in no acute distress at the present. VITAL SIGNS: He weighs about 95 kg. He is 77 inches tall. Temperature is 97.8, blood pressure 108 /67, respirations 18, pulse is 85. HEENT: The head is normal. NECK: He does have a tracheostomy opening. HEART: Regular. LUNGS: Clear. ABDOMEN: Soft. There is no tenderness at the present. GENITALIA: External genitalia are normal. EXTREMITIES: Reveal no edema. LABORATORY DATA: All in the chart. IMPRESSION: Bilateral upper ureteral stones with hydronephrosis and urinary tract infection. PLAN: To do a cystoscopy, right ureteroscopy, laser lithotripsy and then remove and replace bilater al JJ stents. At a later date, he will need also the left ureteral stone treated as well. I have d iscussed this procedure and the plan of the other procedures with the patient before and again today and he understands all of that, the benefits, the risks from bleeding, infection, septicemia, phleb itis, the usual anesthetic risks. He understands all of that and he is agreeable to proceed. I did answer all the questions that he asked. Dictated By: SKIP KIM/BONNIE Conf#: [id number] DID#: [id number]
--- NOTE | 2016-10-26 16:06 | OPR ---
DATE OF OPERATION: 10/26/2016 PREOPERATIVE DIAGNOSIS: Bilateral upper ureteral stones, bilateral hydronephrosis and urinary tract infection. POSTOPERATIVE DIAGNOSIS: Bilateral upper ureteral stones, bilateral hydronephrosis and urinary trac t infection. PROCEDURE: Cystoscopy, right ureteral pyeloscopy, laser lithotripsy to the right upper ureteral ston e, and removal and replacement of the bilateral JJ stents. TECHNIQUE: The patient was brought to the operating room. General anesthesia was induced. The eliazar zapata was given 1 gram of ceftriaxone IV at the start of the procedure. A time-out was done. The michael bobo was identified by his name, the procedure, and the side of the procedure. Once the patient wa s positioned in the lithotomy position, the genital area was prepped and draped in the usual sterile manner. Cystoscopy was done and the 2 JJ stents were noted and they had white material on them at the end in the bladder, most likely a yeast infection, and in fact, the patient does have yeast in h is urine. Therefore, the distal end of the right ureteral stent was grasped and pulled out to the u rethral meatus. Then I tried to pass the Glidewire into it, but it looks like the proximal end came below the level of the stone. Therefore, I went ahead and pulled it out. The right ureteral orifi ce was again visualized and cannulated with a 5-Irish open-ended and I advanced the Glidewire throu gh that, all the way up to the level of the stone. Once it reached the stone, it was bouncing back; however, after some manipulation I was able to advance the Glidewire up to the kidney. At that mom ent I removed the open ended and introduced the dual-lumen ureteral catheter and through the second working channel I passed the 0.035 sensor wire and that did go all the way up to the kidney. Then I removed the dual lumen and left the sensor wire as a safety wire and on the other wire, the zip wi re, I advanced the access sheath which is 11 x 13 mm diameter and 36 cm long. Once it reached below the level of the stone, then I reintroduced the digital flexible ureteroscope and visualized the st one. The stone was completely occluding and I had to manipulate to be able to see the stone. Once I was able to visualize the stone, the 200-micron holmium laser was used and the stone was broken in to numerous pieces and, in fact, there were a lot of pieces and it looked like the stone is an infec mejia stone. It is very friable and it breaks easily. Once the stone was broken I used the basket and basketed the stone fragments out. However, the area where the stone was, was very inflamed. The fl exible digital ureteroscope was difficult to advance above it to be able to retrieve the remaining s tone fragments, so I had to use ureteroscopy with the rigid ureteroscope, so I removed the access sh eath and introduced the long rigid ureteroscope in the ureter and advanced it up to the level of the stone. Then I used, again, the holmium laser and fragmented the stones further and then I did pass the rigid ureteroscope all the way up to the kidney and whatever stone was seen was treated with e holmium laser. Then I removed the rigid ureteroscope, reintroduced a 13 x 15 mm diameter, 46 cm l karlos access sheath and then through that I passed the digital ureteroscope all the way up to the [facility]. Once I reached the kidney I aspirated the fluid from the kidney and looked around. I could not see any big stone, still very tiny stone fragments that the patient should be able to pass on his o wn. As I came down I also inspected the ureter and basketed any fragments that I was able to grab in the basket, many were very tiny, sand-like fragments, that the patient should be able to pass. A t the end I did remove the ureteroscope. I then reintroduced the cystoscope into the bladder on the safety wire and on the safety wire I advanced a 6-Irish x 26 cm long JJ stent, had its proximal end curling into the kidney and the distal end curling into the bladder. Then I turned my attention to the replacement of the left ureteral JJ stent and I first pulled it ou t to the meatus, but, again, the proximal end of it came down below the level of the stone. Therefo re, I had to pass the Glidewire back in and reintroduced the cystoscope, advanced the open-ended on the Glidewire, and manipulated the Glidewire until it went up to the kidney. Once it reached the ki dney I removed the open-ended and then I inserted a new 6-Irish x 26 cm long JJ stent, had its prox imal end curling into the kidney and the distal end curling into the bladder. The bladder was then emptied and the patient was transferred to the recovery room in stable and satisfactory condition. Dictated By: SKPI KIM/BONNIE Conf#: [id number] DID#: [id number]
--- NOTE | 2016-10-26 16:20 | RADRPT ---
PROCEDURE: Intraoperative fluoroscopy for bilateral stent placements. CLINICAL INDICATION: Bilateral stent placements. TECHNIQUE: A total of 8 fluoroscopic images were performed covering the pelvis and upper abdomen i n the AP projection. COMPARISON: KUB 10/10/2016. FINDINGS: Fluoroscopic time: 338.5 seconds. Cumulative dose: 72.2 mGy. Bilateral ureteral stents are identified extending from the urinary bladder to the level of the righ t left renal pelvises. The right renal stent was removed with a persistent ureterolith present at t he level of L3-4. The guide wire was subsequently passed parallel to the ureteral stone and into the proximal right re nal collecting system. A laser scope was then passed into the ureter and the stone removed. IMPRESSION: 1. Status post lithotripsy with removal of a ureterolith previously noted in the mid right ureter. 2. Status post level of the double-J ureteral stent. 3. A left ureteral stent remains in place. RPTAT:AAJJ Physician Le Date Time Electronically viewed and signed by Choco Maxwell Physician on 10/26/2016 16:19 YA/
== END | disposition home or self-care (01) ==
LOC: SDS 08:05
PROVIDERS: ATTEND Urology
DX: N13.2 Hydronephrosis with renal and ureteral calculous obstruction (principal); N39.0 Urinary tract infection, site not specified; F17.200 Nicotine dependence, unspecified, uncomplicated; I12.9 Hypertensive chronic kidney disease with stage 1 through stage 4 chronic kidney disease, or unspecified chronic kidney disease; N18.9 Chronic kidney disease, unspecified; J44.9 Chronic obstructive pulmonary disease, unspecified; B19.20 Unspecified viral hepatitis C without hepatic coma
CPT/HCPCS: 52332; 52356; 74430; 87086; 88300; C2617; J0696; J2250; J2405; J3010; Z7512; Z7610

== ENCOUNTER 2016-12-19 10:17 | Day surgery (SDC) | payer OTHER ==
[2016-12-19] VITALS (10 sets, daily range): BP systolic 91–128; BP diastolic 55–90; PULSE 48–72; RESP 14–16; Ht 195.6 cm; Wt 92.3 kg
[~2016-12-19] VITALS: Ht 195.6 cm; Wt 92.3 kg
--- NOTE | 2016-12-19 09:33 | CONS ---
DATE OF ADMISSION: 12/19/2016 DATE OF CONSULTATION: 12/19/2016 CHIEF COMPLAINT: Left upper ureteral stone. HISTORY OF PRESENT ILLNESS: This is a 56-year-old male who was admitted to this hospital before and was found to have bilateral upper ureteral stones with bilateral hydronephrosis and renal failure b ecause of the obstruction. He then underwent placement of a JJ stent on both sides. He was readmit mejia another time, where the right ureteral stone was removed and the JJ stent at that time was repla sylvester. The patient now is being admitted to undergo left ureteroscopy and laser lithotripsy to the lef t upper ureteral stone. The patient at present is comfortable. PAST MEDICAL HISTORY: He does have a history of chronic respiratory failure and had a tracheostomy and that was decannulated. He does have a history of hypertension, diverticulitis, anemia, chronic kidney disease, hepatitis C and liver cirrhosis. SOCIAL HISTORY: He used to be a smoker and still smokes. He had a history of drug abuse in the [facility]. ALLERGIES: NO KNOWN DRUG ALLERGIES. MEDICATIONS: Includes: 1. Atenolol. 2. Ambien. 3. Pepcid. 4. Ferrous sulfate. 5. Claritin. 6. Robinul. 7. Albuterol. 8. Ipratropium. 9. Tylenol for fever. PHYSICAL EXAMINATION: GENERAL: Reveals a 56-year-old male who is in no acute distress at the present. HEAD AND NECK: Unremarkable. There is no cervical adenopathy. He does have a tracheostomy that is closed. He does have a tracheostomy opening, but he does not have a tube in there. HEART: Regular. LUNGS: Clear. ABDOMEN: Soft. There is no abdominal mass palpable. GENITALIA: External genitalia are normal. EXTREMITIES: Reveal no edema, no varicose veins and no pitting edema. Preoperative lab work was done in the [facility] facility and will be attached to his record wh en he comes in this morning. IMPRESSION: Left upper ureteral stone, status post insertion of a left ureteral JJ stent. PLAN: Do a cystoscopy, left ureteroscopy, laser lithotripsy and removal and replacement of the left ureteral JJ stent. The procedure has been discussed with the patient on more than one occasion and he is understanding that and he is agreeable to proceed. Dictated By: SKIP KIM/BONNIE Conf#: [id number] DID#: [id number]
[~2016-12-19 10:17] MED LIST changes: -CEFTRIAXONE 1 GM/50 ML (PMX) 50 ML IVPB ONE; +CEFTRIAXONE 1 GM/NS 50 ML IVPB SCH; -DIPHENHYDRAMINE 50 MG INJ IV PRN; -ETOMIDATE 20 MG INJ ONE; -FENTAnyl 50 MCG/ML VIAL IV PRN; -FENTAnyl 50 MCG/ML VIAL ONE; -HYDROCODONE/APAP (5/325) TAB PO PRN; -HYDROmorphONE (0.2 MG/ML) 10ML SYG IV PRN; -LIDOCAINE 2% (SDV) 5 ML INJ ONE; -MEPERIDINE 25 MG INJ IV PRN; -MIDAZOLAM 1 MG/ML 2 ML INJ ONE; -ONDANSETRON 4 MG INJ IV PRN; -ONDANSETRON 4 MG INJ ONE; -ROCURONIUM 50 MG INJ ONE
[2016-12-19] MEDS ORDERED: FER325 PO (10:55)
[2016-12-19] MEDS ORDERED: FAMO40TA52 PO (10:56)
[2016-12-19] MEDS ORDERED: ZOLP5TAB7 PO (10:57)
[2016-12-19] MEDS ORDERED: HYDR-902 PO (10:58)
[2016-12-19] MEDS ORDERED: IPRA3AMP INHALATION (10:58)
[2016-12-19] MEDS ORDERED: MAGN400O4 PO (10:59)
[2016-12-19] MEDS ORDERED: ONDA-43 PO (10:59)
[2016-12-19] MEDS ORDERED: BISA-57 PO (11:01)
[2016-12-19] MEDS ORDERED: FLEETOIL PR (11:02)
[2016-12-19] MEDS ORDERED: ACET-141 PO (11:03)
[2016-12-19] MEDS ORDERED: PROPOFOL 100 ML ONE (12:26)
[2016-12-19] MEDS ORDERED: FENTAnyl 50 MCG/ML VIAL ONE (12:26)
[2016-12-19] MEDS ORDERED: MIDAZOLAM 1 MG/ML 2 ML INJ ONE ×2 (12:26)
[2016-12-19] MEDS ORDERED: METOCLOPRAMIDE 10 MG INJ ONE (13:05)
[2016-12-19] MEDS ORDERED: PHENYLephrine (100 MCG/ML) 5ML SYG ONE ×4 (13:05→14:14)
[2016-12-19] MEDS ORDERED: KETOROLAC 30 MG INJ ONE (13:05)
[2016-12-19] MEDS ORDERED: ONDANSETRON 4 MG INJ ONE (13:05)
[2016-12-19] MEDS ORDERED: DEXAMETHASONE 4 MG/ML 1 ML INJ ONE ×2 (13:06)
[2016-12-19] MEDS ORDERED: HETASTARCH 6% NACL 500 ML ONE (13:30)
[2016-12-19] MEDS ORDERED: HYDROmorphONE (0.2 MG/ML) 10ML SYG IV PRN ×3 (14:00)
[2016-12-19] MEDS ORDERED: hydrALAzine 20 MG INJ IV PRN (14:00)
[2016-12-19] MEDS ORDERED: IPRATROPIUM (NEB) 0.5 MG/2.5 ML AMP HHN ONE (14:00)
[2016-12-19] MEDS ORDERED: ALBUTEROL 0.083% (NEB) 2.5 MG/3 ML AMP HHN ONE (14:00)
[2016-12-19] MEDS ORDERED: morphine (1 MG/ML) 10ML SYRINGE IV PRN ×3 (14:00)
[2016-12-19] MEDS ORDERED: LABETALOL HCL 20MG INJ IV PRN (14:00)
[2016-12-19] MEDS ORDERED: ONDANSETRON 4 MG INJ IV PRN (14:00)
[2016-12-19] MEDS ORDERED: METOCLOPRAMIDE 10 MG INJ IV PRN (14:00)
[2016-12-19] MEDS ORDERED: MEPERIDINE 25 MG INJ IV PRN (14:00)
[2016-12-19] MEDS ORDERED: EPHEDrine SULFATE 50 MG/5 ML SYG IV PRN (14:00)
[2016-12-19] MEDS ORDERED: OXYCODONE/ACETAMINOPHEN (5/325) TAB PO PRN (14:00)
[2016-12-19] MEDS ORDERED: ALBUMIN HUMAN 5% 250 ML IV PRN (14:00)
[2016-12-19] MEDS ORDERED: DIPHENHYDRAMINE 50 MG INJ IV PRN (14:00)
[2016-12-19] MEDS ORDERED: HYDROCODONE/APAP (5/325) TAB PO PRN (15:00)
--- NOTE | 2016-12-19 16:37 | OPR ---
DATE OF OPERATION: 12/19/2016 PREOPERATIVE DIAGNOSIS: Left upper ureteral stone with obstruction, status post right ureteroscopy, laser lithotripsy and insertion of right ureteral JJ stent. OPERATION PERFORMED: 1. Cystoscopy, removal of right ureteral JJ stent. 2. Then, left ureteroscopy. 3. Laser lithotripsy. 4. Removal and replacement of left ureteral JJ stent. TECHNIQUE: The patient was brought to the operating room. The patient was given a spinal anesthesi a. Also that was supplemented by general anesthesia, The time-out was done. The patient was ident ified by his name, date, the procedure and the site of the procedure. The patient was given 1 gram of ceftriaxone IV at the start of the procedure. Then, the patient was positioned in the lith otomy position. The genital area was prepped and draped in the usual sterile manner. A #21 Namibian cystoscope sheath was introduced under direct vision through the penile urethra all the way to the b ladder. Once in the bladder, urine was collected for culture and sensitivity. Then, the stents ciara t were in both ureters were identified. I grasped the distal end of the right ureteral stent and pu lled it out. It came out without any problem. Then, I did grab the distal end of the left ureteral JJ stent and pulled it out as well. Then, I repeated the cystoscopy and cannulated the left ureter al orifice with a 5-Namibian open ended. Under vision, I advanced the urethral catheter up to the lev el of the stone. Fluoroscopy was done. The stone was visualized and a 0.035 sensor wire was passed , and it did go next to the stone all the way up to the kidney. Following that, I removed the scope and left the sensor wire in place. Then, I used the dual-lumen urethral catheter and advanced it o n the sensor wire to the level of the stone. There, I did pass another wire this time a zip wire 0. 035 and that also did go up to the kidney. Then, once the 2 wires were up in the kidney, I removed the dual-lumen catheter and the sensor wire was used as a safety wire and the zip wire was used to a dvance the access sheath 11 x 13 x 36 cm long, and that was advanced and it went up to the upper ure ter. Then, through the access sheath, I passed the digital flexible ureteroscope all the way up to the level of the stone. The stone was visualized, the stone appeared to be very fragile. In fact, it already had some fragments because of the passage of the wires and the stents before. Once the s tone was visualized, the holmium laser was used and I fragmented the stone in many pieces. In fact, many small pieces like sand were coming out through the access sheath. I did basket many of the sto ne fragments and they were all small. There was no big piece of stone that we could basket. Theref ore most of them were all like sand and they were removed. This is indicating that the stone is mos t likely an infection stone. Then, I went up to the kidney and in the kidney also I grasped a lot o f the mushy debris that came from the stone. The stone was like 1 or 2 cm below the ureteropelvic j unction, so when it was broken, many of the fragments went back up into the kidney and I did look al l over the kidney. There was no hard stone. Most of the fragments that were seen were all like mus hy, very fragile. I did aspirate a lot of these out of the kidney using a syringe that I connected directly to the scope. Once I cleaned the kidney as much as possible as well as the ureter, I did u se the laser again to dislodge some pieces that were stuck to the wall of the ureter. Once all the fragments from the ureter were taken out and the kidney was clean as possible. At that moment, I r emoved the ureteroscope and the access sheath. Then, I reintroduced the cystoscope on the safety wi re and then on the safety wire, I advanced a 6-Namibian x 24 cm long JJ stent. It had its proximal en d curling into the kidney and the distal end curling into the bladder. The patient tolerated the pr ocedure well and was transferred to recovery room in stable and satisfactory condition. The distal end of the stent was also attached to a string that was taped on the penis on the outside. Dictated By: SKIP KIM/BONNIE Conf#: [id number] DID#: [id number]
--- NOTE | 2016-12-19 16:46 | RADRPT ---
PROCEDURE: Intraoperative imaging of the abdomen and pelvis with fluoroscopy. CLINICAL INDICATION: Abdominal pain. Intraoperative. TECHNIQUE: 14 images of the abdomen and pelvis were obtained in the operating room with an image i ntensifier. No radiologist was in attendance. 116 seconds of fluoroscopy time was used. COMPARISON: 10/26/2016. FINDINGS: Images demonstrate removal of a right double pigtail ureteral stent. A stone is present in the prox imal left ureter. There is instrumentation at this site followed by replacement of the left double pigtail ureteral stent. IMPRESSION: 1. Satisfactory intraoperative imaging of the abdomen and pelvis. RPTAT: QQ .Oli Ford MD, MD Date Time Electronically viewed and signed by .Oli Ford MD, MD on 12/19/2016 16:46 .R/
== END 2016-12-19 16:20 | disposition home or self-care (01) ==
LOC: SDS 10:17
PROVIDERS: ATTEND Urology
DX: N20.1 Calculus of ureter (principal); I10 Essential (primary) hypertension; J44.9 Chronic obstructive pulmonary disease, unspecified
CPT/HCPCS: 52356; 74430; 87086; 88300; C2617; J1100; J1885; J2250; J2370; J2405; J2765; J3010; Z7512; Z7610

== ENCOUNTER 2017-11-11 21:25 | Observation (INO) | END 2017-11-13 17:27 | disposition home or self-care (01) ==